=== PATIENT | male | born 1945 | race Caucasian/White ===

== ENCOUNTER 2016-12-02 12:30 | Inpatient (IN) | payer MEDICARE ==
[2016-12-03 12:54] VITALS: BMI 33.2
[2016-12-09] MEDS ORDERED: Tranexamic Acid 1,000 MG/100 ML BAG ONE (07:47)
[2016-12-09] MEDS ORDERED: Fentanyl 100 MCG/2 ML VIAL ONE ×4 (07:53→13:19)
[2016-12-09] MEDS ORDERED: Midazolam HCl 2 mg/2 ml Vial ONE (07:53)
[2016-12-09] MEDS ORDERED: Bupivacaine HCl 0.5%/Epinephrine 1:200,000/PF 30 ml Vial ONE (08:03)
[2016-12-09] MEDS ORDERED: Ondansetron HCl/PF 4 MG/2 ML Vial IVP PRN ×2 (08:58→12:28)
[2016-12-09] MEDS ORDERED: Zolpidem Tartrate 5 MG TAB PO PRN (08:58)
[2016-12-09] MEDS ORDERED: HYDROcodone/Acetaminophen 10/325 mg Tablet PO PRN (08:58)
[2016-12-09] MEDS ORDERED: Promethazine HCl 25 MG/ML VIAL IM PRN ×2 (08:58→12:28)
[2016-12-09] MEDS ORDERED: Ropivacaine HCl/PF 250 ML in Premix Bag 1 BAG NERVE BLCK SCH (08:58)
[2016-12-09] MEDS ORDERED: traMADol HCl 50 MG TAB PO PRN ×2 (08:58)
[2016-12-09] MEDS ORDERED: Levofloxacin 500 mg/D5W 100 ml Premix Bag ONE (09:50)
[2016-12-09] MEDS ORDERED: Clindamycin/D5W 900 mg/50 ml Premix Bag ONE (09:50)
[2016-12-09] MEDS ORDERED: PHENYLEPHRINE-NS 100 MCG/ML 10 ML SYRINGE ONE (10:08)
[2016-12-09] MEDS ORDERED: Propofol 200 MG/20 ML VIAL ONE (10:08)
[2016-12-09] MEDS ORDERED: Ketorolac Tromethamine 30 MG/ML VIAL ONE (10:08)
[2016-12-09] MEDS ORDERED: Dexamethasone 20 MG/5 ML VIAL ONE (10:08)
[2016-12-09] MEDS ORDERED: Ondansetron HCl/PF 4 MG/2 ML Vial ONE (10:08)
[2016-12-09] MEDS ORDERED: Lidocaine 2% PF 10 ML AMP (For Epidural Use) ONE (10:08)
[2016-12-09] MEDS ORDERED: Tranexamic Acid 1,000 MG in Sodium Chloride 0.9% 100 ML IVPB SCH (12:15)
[2016-12-09] MEDS ORDERED: Sodium Chloride 0.9% 100 ML ONE (12:16)
[2016-12-09] MEDS ORDERED: Promethazine HCl 25 MG/ML VIAL SLOW IVP PRN (12:28)
[2016-12-09] MEDS ORDERED: HYDROmorphone 2 MG/ML VIAL SLOW IVP PRN (12:28)
--- NOTE | 2016-12-09 14:21 | RAD ---
RIGHT KNEE TWO VIEWS: History: 71-year-old male with post op total knee arthroplasty. FINDINGS: Recent total knee arthroplasty changes are noted. No evidence of dislocation or periprosthetic fract ure or other unexpected finding. IMPRESSION: Unremarkable recent post total knee arthroplasty. POS: LIZETH
--- NOTE | 2016-12-09 14:36 | OP ---
DATE OF PROCEDURE: 12/09/2016 PREOPERATIVE DIAGNOSIS: Right knee osteoarthritis. POSTOPERATIVE DIAGNOSES: Right knee osteoarthritis. PROCEDURE PERFORMED: Right total knee arthroplasty. STAFF: Dario Stein M.D. SHIPPER AND RECEIVING: JONATHAN Killian ANESTHESIA: The patient received a general LMA intubation with abductor canal and a single shot to sciatic. ESTIMATED BLOOD LOSS: 100 mL. TOURNIQUET TIME: 98 minutes. ANTIBIOTICS: Clindamycin 900, Levaquin 500, TXA 1 gram. IMPLANTS: The patient received Nate Triathlon CR femur. Femur size 5, tibia size 4, 9 mm polyp, CR femur poly, and A29 patella. COMPLICATIONS: None. HISTORY OF PRESENT ILLNESS: Mr. Muniz is a 71-year-old male with years of right knee pain. The patient had previous left total knee arthroplasty. The patient had a history of chronic pain. The patient had no previous injury to his right knee. I discussed with patient the risks and benefits of right total knee arthroplasty to include pain, scar, bleeding, infection, damage to vital structures, decreased range of motion or strength, failure of procedure, continued pain despite surgical intervention. The patient understood the risks and benefits of procedure and elected to proceed. PROCEDURE IN DETAIL: Timeout was performed designating the patient's right lower extremity as the operative site based on sight, consents, markings. After timeout, the patient's right lower extremity was prepped and draped in sterile fashion. The right lower extremity was prepped and draped in sterile fashion. Tourniquet was brought up and left up for a total of 98 minutes. Anterior midline approach was medial patellar arthrotomy. We did our fat pad excision. We released soft tissue medially, exposed the femur, mapped the femur out, cut 7 and 10 degrees varus valgus and 4 degrees anterior slope. We then matched external rotation guide on our femur, pinned it into position. We cut the femur at 3 degrees of external rotation at a size 5. We moved our anterior, posterior chamfer cuts. We then moved the tibia, exposed the tibia and cut 1 and 6 switching to 3 and 8, 0 degrees varus valgus, 4 degrees of posterior slope. We had to go back and smooth the posterior slope as he had osteophytes posteriorly. With this, we placed our lamina electrolysis operator, removed osteophytes, removed our meniscus medially and laterally, pinned our tray, slightly remant posterior bone and slope which we smoothed down, we then finalized and pinned our tray into position size 4, a 9 poly. He had good flexion and extension, good overall rotation, was good alignment and good full extension and flexion. The patient then had the patella, cut. It was cut to an A29, leaving about 14 mm of bone down from 25. We then placed it into position. I liked the overall alignment. I tracked and I washed, closed the medial patellar arthrotomy with # 2. We closed with a 2-0 and glue. The patient will be weightbearing as tolerated. The patient will follow up in the hospital, will need acute pain control. LUIS ANGEL
[2016-12-09] MEDS ORDERED: PROVENTIL INHALER 6.7 G (200 INHALATIONS) INH PRN (14:46)
[2016-12-09] MEDS ORDERED: diphenhydrAMINE HCl 25 MG CAP PO PRN (15:00)
[2016-12-09] MEDS ORDERED: Fentanyl 100 MCG/2 ML VIAL SLOW IVP PRN (15:00)
[2016-12-09] MEDS ORDERED: Acetaminophen 325 MG TAB PO PRN (15:00)
[2016-12-09] MEDS: Gabapentin 300 MG CAP PO SCH ×2 (15:30→20:36)
[2016-12-09] MEDS: Methocarbamol 500 MG TAB PO SCH ×2 (15:30→20:35)
[2016-12-09] MEDS: Clindamycin/D5W 900 MG in Premix Bag 1 BAG IVPB SCH ×2 (15:30→21:49)
[2016-12-09] MEDS: Fentanyl 100 MCG/2 ML VIAL SLOW IVP PRN (15:34)
[2016-12-09] MEDS: Dextrose 5 %-0.45 % NaCl 1,000 ML IV SCH (16:17)
--- NOTE | 2016-12-09 19:47 | HP ---
PREOPERATIVE DIAGNOSIS: Right knee osteoarthritis. HISTORY OF PRESENT ILLNESS: Mr. Muniz is a 71-year-old male with right knee pain, severe with activity, and having difficulty walking, has a history of left total knee arthroplasty. The patient had no previous surgeries or injuries to his right knee, numbness or tingling. Previous injection gave him minimal relief. Pain was 4-10 at times. The pain increases. The patient has no significa nt history of cardiac or pulmonary condition. This patient does have a history of chronic pain kajal gejace by chronic pain specialist in [place]. PAST MEDICAL HISTORY: Includes hypertension, asthma, COPD and chronic pain. PAST SURGICAL HISTORY: Multiple low back surgeries, cervical spine surgery, left total shoulder art hroplasty, right total shoulder arthroplasty performed here by me, left total knee arthroplasty and previous foot procedure. MEDICATIONS: Include albuterol, bupropion, cholecalciferol, clonazepam, vitamin B12, diphenhydramin e, Cymbalta, finasteride, gabapentin, hydrocodone, ibuprofen, Robaxin, omega 3, pantoprazole, tamsul osin and trazodone. ALLERGIES: PENICILLIN and LATEX. SOCIAL HISTORY: Currently nonsmoker. Currently nondrinker. The patient is retired. PHYSICAL EXAMINATION: GENERAL: Alert and oriented male in no acute distress, resting in bed. EXTREMITIES: Right knee, the patient has moderate effusion, ecchymosis is prominent at tibial tuber nina. Medial joint line and lateral joint line pain on palpation, no surgical wounds, 500-degree arc of motion. Ligaments; ACL, PCL, MCL and LCL appear stable. Calf, neurovascularly intact. 2+ puls es. Able to do straight leg raise. Previous x-rays showed tricompartmental osteoarthritis, no acut e fracture, loose bodies noted near patellar tendon insertion. IMPRESSION AND PLAN: Right knee osteoarthritis. Treatment: I discussed performing a right total k nee arthroplasty for long-term relief. The patient would like to proceed surgically with right knee arthroplasty. He understands that this pain may be managed with a pain specialist. The patient wi ll follow [facility] postop protocol and remain in the hospital postop. He understands the risks an d benefits of surgery, pain, scar, bleeding, infection, damage to vital structures, decreased range of motion or strength, failure of procedure, continued pain, loss of life or limb. The patient unde rstood these risks and benefits and elects to proceed.
[2016-12-09] MEDS: Tamsulosin HCl 0.4 MG CAP PO SCH (20:35)
[2016-12-09] MEDS: clonazePAM 0.5 MG TAB PO SCH (20:35)
[2016-12-09] MEDS: Ferrous Gluconate 324 MG TAB PO SCH (20:35)
[2016-12-09] MEDS: traZODone HCl 50 MG TAB PO SCH (20:36)
[2016-12-09] MEDS: diphenhydrAMINE HCl 25 MG CAP PO SCH (20:36)
[2016-12-09] MEDS: Senokot S 8.6-50 MG TAB PO SCH ×2 (20:37)
[2016-12-09] MEDS: Ketorolac Tromethamine 30 MG/ML VIAL IVP SCH (21:47)
--- NOTE | 2016-12-10 02:16 | CON-2 ---
DATE OF CONSULTATION: 12/09/2016 CODE STATUS: FULL. PRIMARY CARE PHYSICIAN: Dr. Regina Rucker. ATTENDING PHYSICIAN: Dr. Gabrielle Harrison. RESIDENT: Dr. Rayna Gutierrez. CHIEF COMPLAINT: Consult for medical management. HISTORY OF PRESENT ILLNESS: This is a 71-year-old patient with a past medical history of osteoarthritis of the right knee, COPD, PTSD. He is here for a right knee replacement, which he received earlier today. He is doing well at this time. Pain is well controlled. He is starting on food and tolerating it okay. No other complaints were offered during the interview. The patient does not have his medication list at this time, but states that the nurse had the updated list and it is in the computer. The patient sees a final touch up painter for chronic pain. PAST MEDICAL HISTORY: COPD, PTSD, possible hyperlipidemia, and osteoarthritis. PAST SURGICAL HISTORY: The patient reports the back surgery, neck surgery, bilateral shoulder replacements, bilateral knee replacements and foot surgery. ALLERGIES: PENICILLIN. MEDICATIONS: 1. Albuterol 2 puffs inhaled q.6 hours p.r.n. 2. Vitamin D3 of 1000 units p.o. daily. 3. Senna 1 tab p.o. at bedtime. 4. Wellbutrin 100 mg p.o. daily. 5. Fish oil 1000 mg capsules p.o. t.i.d. 6. Diphenhydramine 3 tabs p.o. at bedtime. 7. Vitamin B12 of 1000 mcg p.o. daily. 8. Flunisolide 2 sprays each naris daily. 9. Gabapentin 300 mg p.o. t.i.d. 10. Ibuprofen 800 mg p.o. b.i.d. p.r.n. 11. Protonix 40 mg p.o. daily. 12. Trazodone 100 mg p.o. at bedtime. 13. Klonopin 0.5 mg tab p.o. b.i.d. 14. Cymbalta 60 mg p.o. at bedtime. 15. Tamsulosin 0.4 mg p.o. at bedtime. 16. Methocarbamol or Robaxin 1 tab p.o. t.i.d. 17. Hydrocodone 10/325 two tabs p.o. q.4 hours p.r.n. pain. FAMILY HISTORY: Unknown, patient is adopted. SOCIAL HISTORY: Patient is a former smoker; however, quit several years ago. He is a social alcohol drinker and does not do drugs. REVIEW OF SYSTEMS: General: Patient denied fever, chills, weight change or appetite change. Eyes: Denies vision changes or eye pain. ENT: Denies nasal congestion, rhinorrhea, or sore throat. Respiratory: No cough, congestion or shortness of breath. Cardiovascular: No chest pain, palpitations, edema. Gastrointestinal: No nausea, vomiting, diarrhea, constipation, abdominal pain. Genitourinary: Denies dysuria, polyuria. Skin: Denies rashes or lesions. Musculoskeletal: Denies pain, tenderness or arthritis per patient. Neurologic : No weakness, numbness or syncope. Psychiatry: Positive for PTSD. PHYSICAL EXAMINATION: VITAL SIGNS: Patient's blood pressure is 143/85, pulse is 87, temperature is 97.7, respirations 20, pulse ox is 93% on room air. Current weight is 96 kilograms. GENERAL: The patient is alert and oriented x3, in no acute distress. Well- developed and well-nourished. EYES: PERRLA, EOMI. ENT: Oropharynx within normal limits with Mallampati 3. NECK: Supple, without lymphadenopathy or thyromegaly. CARDIOVASCULAR: Regular rate and rhythm without any murmurs noted. Posterior tibial pulses are 2+. RESPIRATORY: Normal effort without retractions and clear to auscultation bilaterally. SKIN: Warm and dry without cyanosis or lesions. ABDOMEN: Soft, nontender to palpation and bowel sounds are present. EXTREMITIES: No clubbing, cyanosis or edema. MUSCULOSKELETAL: Structure is within normal limits. Tone within normal limits. Muscle strength 5/5 and has full range of motion. There is a bandage to his right knee. NEUROLOGIC: No focal deficits. Sensation is within normal limits. Cranial nerves II through XII appeared to be intact. LABORATORY DATA: Patient's only lab done during this hospitalization is a PT of 13 and INR of 1. ASSESSMENT AND PLAN: This is a 71-year-old patient who is status post right knee replacement. 1. Right knee arthritis, status post arthroplasty. This management will be per Ortho, however, noted to have weightbearing as tolerated status. He has p.r.n. pain medications on which were also being managed by Anesthesia. PT is consulted. 2. Chronic obstructive pulmonary disease. The patient has p.r.n. albuterol. 3. Posttraumatic stress disorder, we will continue his current home medications Wellbutrin and Cymbalta. 4. May consider deep vein thrombosis prophylaxis per Ortho recommendations. 5. Pain management per Anesthesia at this time. Also, patient will be doing physical therapy as tolerated. 6. We will continue to monitor the patient's vital signs and give symptomatic medications as needed. Thank you for the consultation. LUIS ANGEL
[2016-12-10] MEDS: Dextrose 5 %-0.45 % NaCl 1,000 ML IV SCH ×3 (02:29→20:26)
[2016-12-10] MEDS: HYDROcodone/Acetaminophen 10/325 mg Tablet PO PRN ×3 (04:03→12:37)
[2016-12-10] MEDS: Ketorolac Tromethamine 30 MG/ML VIAL IVP SCH ×3 (05:33→22:32)
[2016-12-10 06:22] LABS: Hematocrit 40.7 % (42.0-52.0); Mean Platelet Volume 8.3 fL (7.4-10.4); Red Blood Cell (RBC) Count 4.03 mill/uL (4.70-6.10); White Blood Cell (WBC) Count 19.3 thou/uL (4.8-10.8)
[2016-12-10] MEDS: buPROPion HCl 100 MG TAB PO SCH (08:38)
[2016-12-10] MEDS: Gabapentin 300 MG CAP PO SCH ×3 (08:38→20:25)
[2016-12-10] MEDS: Senokot S 8.6-50 MG TAB PO SCH ×3 (08:38→20:24)
[2016-12-10] MEDS: Methocarbamol 500 MG TAB PO SCH ×3 (08:39→20:25)
[2016-12-10] MEDS: FlunisoLIDE 0.025% Nasal Spray 25 ml Bottle EA NARE SCH (08:39)
[2016-12-10] MEDS: clonazePAM 0.5 MG TAB PO SCH (08:39)
[2016-12-10] MEDS: Ferrous Gluconate 324 MG TAB PO SCH ×2 (08:39→20:25)
[2016-12-10] MEDS: Aspirin 325 MG TAB PO SCH (08:39)
[2016-12-10] MEDS: Multivitamin W/ Minerals 1 TAB PO SCH (08:39)
--- NOTE | 2016-12-10 09:15 | PDOC.FM ---
- Subjective Subjective: Pain well controlled. Nerve block in place to RLE. Tolerating foods well. No complaints this AM. - Objective Vital Signs & Weight: Vital Signs (12 hours) Temp Pulse Resp BP BP Pulse Ox 12/10/16 07:19 97.9 F 71 16 119/72 95 12/10/16 04:00 98.7 F 78 14 127/77 97 12/10/16 00:00 98.4 F 69 16 110/69 92 L Weight Weight 96.162 kg I&O: 12/09/16 12/10/16 12/11/16 06:59 06:59 06:59 Intake Total 300 Output Total 1200 Balance -900 Result Diagrams: 12/10/16 05:25 <Rayna Gutierrez - Last Filed: 12/10/16 10:34> - Objective Vital Signs & Weight: Vital Signs (12 hours) Temp Pulse Resp BP BP Pulse Ox 12/10/16 08:00 97.9 F 71 16 95 12/10/16 07:19 97.9 F 71 16 119/72 95 12/10/16 04:00 98.7 F 78 14 127/77 97 12/10/16 00:00 98.4 F 69 16 110/69 92 L Weight Weight 96.162 kg I&O: 12/09/16 12/10/16 12/11/16 06:59 06:59 06:59 Intake Total 300 Output Total 1200 Balance -900 Result Diagrams: 12/10/16 05:25 <Regina Rucker - Last Filed: 12/10/16 10:45> Phys Exam - Physical Examination Constitutional: NAD HEENT: PERRLA Respiratory: no wheezing, no rales, no rhonchi, clear to auscultation bilateral Cardiovascular: RRR, no significant murmur 2+ post tibial pulse B Gastrointestinal: soft, non-tender Musculoskeletal: no edema RLE numb 2/2 nerve block Psychiatric: normal affect, A&O x 3 <Rayna Gutierrez - Last Filed: 12/10/16 10:34> Dx/Plan (1) Status post total knee replacement, right Code(s): Z96.651 - PRESENCE OF RIGHT ARTIFICIAL KNEE JOINT Status: Acute Plan: Pain controlled. decrease pain meds per anesthesia. Initiate PT Monitor for BM although patient has bowel regimen in place. high dose ASA DVT ppx (2) PTSD (post-traumatic stress disorder) Code(s): F43.10 - POST-TRAUMATIC STRESS DISORDER, UNSPECIFIED Status: Acute Plan: cont current home meds. (3) COPD (chronic obstructive pulmonary disease) Status: Chronic Plan: prn albuterol available. stable <Rayna Gutierrez - Last Filed: 12/10/16 10:34> Attending Addendum - Attending Addendum I personally evaluated the patient and discussed the management with Dr. Gutierrez. I agree with the History, Examination, Assessment and Plan documented above with any addition or exceptions noted below. The patient was sitting up in a chair and states pain is controlled with nerve block. He is working with PT. He has no other complaints at this time. <Regina Rucker - Last Filed: 12/10/16 10:45>
[2016-12-10] MEDS: Fentanyl 100 MCG/2 ML VIAL SLOW IVP PRN ×3 (10:35→15:52)
[2016-12-10] MEDS ORDERED: Naloxone HCl 0.4 mg/ml Vial IV PRN (16:43)
[2016-12-10] MEDS ORDERED: Promethazine HCl 25 MG/ML VIAL IM PRN (16:43)
[2016-12-10] MEDS ORDERED: diphenhydrAMINE HCl 25 MG CAP PO PRN (16:43)
[2016-12-10] MEDS ORDERED: diphenhydrAMINE HCl 50 MG/ML 1 ML VIAL IM/IV PRN (16:43)
[2016-12-10] MEDS ORDERED: Ondansetron HCl/PF 4 MG/2 ML Vial IVP PRN (16:43)
[2016-12-10] MEDS ORDERED: Zolpidem Tartrate 5 MG TAB PO PRN (16:43)
[2016-12-10] MEDS ORDERED: Fentanyl 5000 MCG/250 ML CADD IV PRN (16:43)
[2016-12-10] MEDS: traZODone HCl 50 MG TAB PO SCH (20:24)
[2016-12-10] MEDS: diphenhydrAMINE HCl 25 MG CAP PO SCH (20:25)
[2016-12-10] MEDS: Tamsulosin HCl 0.4 MG CAP PO SCH (20:25)
[2016-12-11 06:05] LABS: Mean Platelet Volume 8.2 fL (7.4-10.4); Red Blood Cell (RBC) Count 3.93 mill/uL (4.70-6.10); White Blood Cell (WBC) Count 12.5 thou/uL (4.8-10.8)
--- NOTE | 2016-12-11 09:28 | PDOC.FM ---
- Subjective Subjective: Patient in significant pain this morning. He is using the TECHNOLOGY SUPPORT ANALYST a lot per patient. Nerve block wore off. Pain is outlined along anterior aspect of lower thigh and over knee. Does not report pain in post leg. Pain is constant and strong. - Objective Vital Signs & Weight: Vital Signs (12 hours) Temp Pulse Resp BP BP Pulse Ox 12/11/16 08:05 98.4 F 94 16 138/82 92 L 12/11/16 04:51 98.4 F 99 19 119/68 92 L 12/11/16 00:00 98.0 F 84 19 104/64 90 L Weight Admit Weight 96.162 kg Weight 96.162 kg I&O: 12/10/16 12/11/16 12/12/16 06:59 06:59 06:59 Intake Total 300 Output Total 1200 Balance -900 Result Diagrams: 12/11/16 05:33 <Rayna Gutierrez - Last Filed: 12/11/16 10:44> - Objective Vital Signs & Weight: Vital Signs (12 hours) Temp Pulse Resp BP Pulse Ox 12/12/16 04:00 97.8 F 90 18 113/72 93 L 12/11/16 23:56 98.5 F 84 19 117/72 93 L Weight Admit Weight 96.162 kg Weight 96.162 kg I&O: 12/11/16 12/12/16 12/13/16 06:59 06:59 06:59 Intake Total 500 Output Total 1000 Balance -500 Result Diagrams: 12/12/16 06:03 <Regina Rucker - Last Filed: 12/12/16 10:47> Phys Exam - Physical Examination complaining of pain non labored breathing Gastrointestinal: soft Musculoskeletal: no edema rt leg slightly increased in size compared to left, no sig warmth rt leg neg homans size, non tender to calf squeeze, mild erythema rt leg <Rayna Gutierrez - Last Filed: 12/11/16 10:44> Dx/Plan (1) Status post total knee replacement, right Code(s): Z96.651 - PRESENCE OF RIGHT ARTIFICIAL KNEE JOINT Status: Acute Plan: Discussed changing pain regimen with anesthesia as patient does not do well with fentanyl. Initiate PT Monitor for BM although patient has bowel regimen in place. high dose ASA DVT ppx (2) PTSD (post-traumatic stress disorder) Code(s): F43.10 - POST-TRAUMATIC STRESS DISORDER, UNSPECIFIED Status: Acute Plan: cont current home meds. (3) COPD (chronic obstructive pulmonary disease) Status: Chronic Plan: prn albuterol available. stable <Rayna Gutierrez - Last Filed: 12/11/16 10:44> Attending Addendum - Attending Addendum I personally evaluated the patient and discussed the management with Dr. Gutierrez on 12/11/16 I agree with the History, Examination, Assessment and Plan documented above with any addition or exceptions noted below. The patient is confused this morning due to increased pain and the fentanyl small business representative. He has not done well with fentanyl during a previous hospitalization for shoulder surgery. Discussed changing meds with anesthesia who will come re- evaluate. <Regina Rucker - Last Filed: 12/12/16 10:47>
[2016-12-11] MEDS: Aspirin 325 MG TAB PO SCH (09:56)
[2016-12-11] MEDS: buPROPion HCl 100 MG TAB PO SCH (09:57)
[2016-12-11] MEDS: Senokot S 8.6-50 MG TAB PO SCH ×3 (09:57→20:54)
[2016-12-11] MEDS: Gabapentin 300 MG CAP PO SCH ×3 (09:57→20:48)
[2016-12-11] MEDS: Multivitamin W/ Minerals 1 TAB PO SCH (09:57)
[2016-12-11] MEDS: Ferrous Gluconate 324 MG TAB PO SCH ×2 (09:58→20:48)
[2016-12-11] MEDS: Dextrose 5 %-0.45 % NaCl 1,000 ML IV SCH ×2 (10:05→16:32)
[2016-12-11] MEDS: FlunisoLIDE 0.025% Nasal Spray 25 ml Bottle EA NARE SCH (10:06)
[2016-12-11] MEDS: Ketorolac Tromethamine 30 MG/ML VIAL IVP SCH ×3 (10:23→21:56)
[2016-12-11] MEDS: Methocarbamol 500 MG TAB PO SCH ×3 (10:24→20:48)
[2016-12-11] MEDS ORDERED: oxyCODONE/Acetaminophen 5 mg/325 mg Tablet PO PRN ×4 (11:55→18:00)
[2016-12-11] MEDS ORDERED: HYDROmorphone 10 mg/100 ml CADD IV PRN (11:56)
[2016-12-11] MEDS ORDERED: Morphine Sulfate 2 MG/ML SYRINGE SLOW IVP PRN (13:11)
[2016-12-11] MEDS: oxyCODONE/Acetaminophen 5 mg/325 mg Tablet PO PRN (19:46)
[2016-12-11] MEDS: diphenhydrAMINE HCl 25 MG CAP PO SCH (20:47)
[2016-12-11] MEDS: traZODone HCl 50 MG TAB PO SCH (20:49)
[2016-12-11] MEDS: Tamsulosin HCl 0.4 MG CAP PO SCH (20:49)
[2016-12-12] MEDS: oxyCODONE/Acetaminophen 5 mg/325 mg Tablet PO PRN ×2 (01:47→08:13)
[2016-12-12 06:32] LABS: Hematocrit 36.6 % (42.0-52.0); Mean Platelet Volume 8.1 fL (7.4-10.4); Red Blood Cell (RBC) Count 3.61 mill/uL (4.70-6.10); White Blood Cell (WBC) Count 9.8 thou/uL (4.8-10.8)
[2016-12-12] MEDS: Aspirin 325 MG TAB PO SCH (08:13)
[2016-12-12] MEDS: Gabapentin 300 MG CAP PO SCH (08:14)
[2016-12-12] MEDS: Ferrous Gluconate 324 MG TAB PO SCH (08:14)
[2016-12-12] MEDS: buPROPion HCl 100 MG TAB PO SCH (08:15)
[2016-12-12] MEDS: Senokot S 8.6-50 MG TAB PO SCH (08:15)
[2016-12-12] MEDS: Methocarbamol 500 MG TAB PO SCH (08:25)
[2016-12-12] MEDS: FlunisoLIDE 0.025% Nasal Spray 25 ml Bottle EA NARE SCH (08:26)
--- NOTE | 2016-12-12 09:07 | PDOC.FM ---
- Subjective Subjective: Patient states he is still in pain this morning but it is tolerable. Oral pain meds are helping. Pans for outpt PT on Thursday and has small exercises to do over the weekend. - Objective MAR Reviewed: Yes Vital Signs & Weight: Vital Signs (12 hours) Temp Pulse Resp BP Pulse Ox 12/12/16 04:00 97.8 F 90 18 113/72 93 L 12/11/16 23:56 98.5 F 84 19 117/72 93 L Weight Admit Weight 96.162 kg Weight 96.162 kg I&O: 12/11/16 12/12/16 12/13/16 06:59 06:59 06:59 Intake Total 500 Output Total 1000 Balance -500 Result Diagrams: 12/12/16 06:03 <Rayna Gutierrez - Last Filed: 12/12/16 09:05> - Objective Vital Signs & Weight: Vital Signs (12 hours) Temp Pulse Resp BP Pulse Ox 12/12/16 04:00 97.8 F 90 18 113/72 93 L 12/11/16 23:56 98.5 F 84 19 117/72 93 L Weight Admit Weight 96.162 kg Weight 96.162 kg I&O: 12/11/16 12/12/16 12/13/16 06:59 06:59 06:59 Intake Total 500 Output Total 1000 Balance -500 Result Diagrams: 12/12/16 06:03 <Regina Rucker - Last Filed: 12/12/16 10:50> Phys Exam - Physical Examination Constitutional: NAD HEENT: PERRLA Respiratory: no wheezing, no rales, no rhonchi, clear to auscultation bilateral Cardiovascular: RRR, no significant murmur Gastrointestinal: soft, non-tender Musculoskeletal: pulses present (bilaterally post tibial 2+) minimal post op swelling to RLE, minimal erythema. No calf tenderness. Neurological: non-focal Psychiatric: A&O x 3 <Rayna Gutierrez - Last Filed: 12/12/16 09:05> Dx/Plan (1) Status post total knee replacement, right Code(s): Z96.651 - PRESENCE OF RIGHT ARTIFICIAL KNEE JOINT Status: Acute (2) PTSD (post-traumatic stress disorder) Code(s): F43.10 - POST-TRAUMATIC STRESS DISORDER, UNSPECIFIED Status: Acute Plan: cont current home meds. (3) COPD (chronic obstructive pulmonary disease) Status: Chronic Plan: prn albuterol available. stable - Plan Plan: Pain control with oral meds. Home later today per ortho. +ASA Encouraged movement/PT exercises. Follow up as advised per ortho. <Rayna Gutierrez - Last Filed: 12/12/16 09:05> Attending Addendum - Attending Addendum I personally evaluated the patient and discussed the management with Dr. Gutierrez. I agree with the History, Examination, Assessment and Plan documented above with any addition or exceptions noted below. Patient is resting comfortably today. He will be discharged later today and will continue oral pain meds per regimen from pain management physician. <Regina Rucker - Last Filed: 12/12/16 10:50>
[2016-12-12] MEDS: Multivitamin W/ Minerals 1 TAB PO SCH (10:45)
[2016-12-12 12:32] VITALS: BP 124/73; TEMP 98.2
--- NOTE | 2016-12-15 12:32 | DIS ---
DATE OF ADMISSION: 12/09/2016 DATE OF DISCHARGE: 12/12/2016 ADMITTING DIAGNOSIS: Right total knee arthroplasty. HISTORY OF PRESENT ILLNESS: Mr. Muniz is a 71-year-old male with right knee pain, previous lef t total knee arthroplasty, underwent an uneventful right total knee arthroplasty. The patient was a dmitted postoperatively. In the hospital, he was followed by Anesthesia. He had pain control issue s. He has a history of chronic pain. Once his pain medications were adjusted back to his home leve l of OxyContin, the patient was discharged home. His medications will be provided by his pain spec ialist. He was discharged on daily aspirin for DVT prophylaxis. The patient is to follow up in 3 w [facility] therapy setup. The patient was discharged to home.
--- NOTE | 2016-12-30 14:29 | DIS ---
DATE OF ADMISSION: 12/09/2016 DATE OF DISCHARGE: 12/12/2016 PREOPERATIVE DIAGNOSIS: Right knee osteoarthritis. DISCHARGE DIAGNOSIS: Right knee osteoarthritis. PROCEDURE: The patient underwent a right total knee arthroplasty. HOSPITAL COURSE: Hospital stay was unremarkable. The patient was admitted to [address] where he worked with staff, physical therapy, occupational therapy, and did quite well. By post op day 3 he was ready to discharge home. DISCHARGE CONDITION: Good/stable. DISPOSITION: Home with family. FOLLOWUP: Follow up would be in 2-4 weeks, sooner if there are problems or concerns. DISCHARGE MEDICATIONS: Given with usage instructions.
== END 2016-12-12 12:17 | disposition home or self-care (01) | DRG 470 ==
LOC: SJJU 12-09 07:06 → SURG A 12-09 13:58
PROVIDERS: ADMIT Orthopaedic Surgery; ATTEND Orthopaedic Surgery
PROC: 0SRC0JA Replacement of Right Knee Joint with Synthetic Substitute, Uncemented, Open Approach (ICD-10-PCS; principal; 2016-12-09)
PROC: 3E0T3CZ (ICD-10-PCS; 2016-12-09)
DX: M17.11 Unilateral primary osteoarthritis, right knee (principal); J44.9 Chronic obstructive pulmonary disease, unspecified; I10 Essential (primary) hypertension; F43.10 Post-traumatic stress disorder, unspecified; Z88.0 Allergy status to penicillin; Z91.040 Latex allergy status; Z96.652 Presence of left artificial knee joint; Z87.891 Personal history of nicotine dependence
CPT/HCPCS: 36415; 85027; 85610; A4216; C1713; C1776; G8978-GP-CL; G8979-GP-CJ; J0670; J1100; J1170; J1885; J1956; J2001; J2250; J2270; J2405; J2704; J2795; J3010; J3490; J7050

== ENCOUNTER 2017-03-27 14:41 | Inpatient (IN) | payer MEDICARE ==
[2017-03-27] MEDS ORDERED: Methocarbamol 500 MG TAB PO PRN (16:04)
[2017-03-27] MEDS ORDERED: Ibuprofen 800 MG TAB PO PRN (16:04)
[2017-03-27] MEDS ORDERED: traZODone HCl 50 MG TAB PO PRN (16:04)
[2017-03-27] MEDS ORDERED: Senokot 8.6 MG TAB PO PRN (16:04)
[2017-03-27 16:41] LABS: Troponin I 0.093 ng/mL (< 0.028)
[2017-03-27] MEDS ORDERED: Albuterol Sulfate 2.5 mg/3 ml Neb NEB PRN (16:46)
[2017-03-27] MEDS ORDERED: Acetaminophen 325 MG TAB PO PRN (18:05)
[2017-03-27] MEDS ORDERED: Thiamine HCl 200 MG/2 ML VIAL IM SCH (18:30)
[2017-03-27] MEDS ORDERED: oxyCODONE/Acetaminophen 5 mg/325 mg Tablet PO SCH ×2 (18:30→22:00)
[2017-03-27 19:02] LABS: Troponin I 0.097 ng/mL (< 0.028)
[2017-03-27] MEDS ORDERED: Diazepam 5 MG TAB PO PRN (19:16)
[2017-03-27] MEDS: Ipratropium Bromide 2.5 ml Neb NEB SCH ×2 (19:19→23:58)
--- NOTE | 2017-03-27 19:26 | HP-2 ---
TIME AND DATE OF SERVICE: 03/27/2017 at 1550. CODE STATUS: FULL CODE. PRIMARY CARE PHYSICIAN: Dr. Rucker. ATTENDING: Gabrielle Harrison M.D. RESIDENT: Luis Barnard MD HISTORIAN: Patient. SPECIALIST: Dr. Patel, Pain Management. CHIEF COMPLAINT: Coughing, not feeling well. HISTORY OF PRESENT ILLNESS: Renard Muniz is a 71-year-old male with past medical history of hy perlipidemia, chronic pain managed by Dr. Patel in [place], and COPD, who presents with 4-day history of increased productive cough and dyspnea. He states that his has been sick and symptoms have pro gressively worsened to the point where yesterday he was having difficulty breathing. He was seen in Dr. Rucker's clinic by JONATHAN this morning and was sent to [facility]. There he had a white count of 22 and an indeterminate troponin of 0.11. He was transferred to [facility] in [facility]. He also received IV Levaquin 125 mg, IV Solu-Medrol, aspirin and DuoNebs. The patient states he has a 67-danp-ddjx smoker, but he quit 10 years ago. He has also had associated body aches and feve r x1 day and states he had a fever in the clinic this morning. PAST MEDICAL HISTORY: 1. Hyperlipidemia. 2. Chronic obstructive pulmonary disease. 3. Gastroesophageal reflux disease. 4. Anxiety/PTSD. PAST SURGICAL HISTORY: He has had a left and right knee arthroscopy, and left and right knee replace ment. He has had right and left shoulder replacement. He has had back surgery. He has had a tonsil lectomy. ALLERGIES: PENICILLIN. MEDICATIONS: 1. Clonazepam 0.5 tabs p.o. b.i.d. 2. Duloxetine delayed release 60 mg p.o. at bedtime. 3. Tamsulosin 0.4 mg p.o. at bedtime. 4. Trazodone 100 mg p.o. at bedtime. 5. Methocarbamol 500 mg t.i.d. 6. Gabapentin 300 mg p.o. t.i.d. 7. Pantoprazole delayed release 40 mg p.o. daily. 8. Oxycodone/acetaminophen 10/325 one tab p.o. q.4-6 hours. 9. Senna 1 tab oral in the morning. 10. Ibuprofen 800 mg t.i.d. 11. Vitamin B12 100 mg p.o. daily. 12. Zyrtec 10 mg b.i.d. 13. [place]-3 500 mg p.o. q.a.m. 14. Spiriva Respimat 2 puff inhaler. 15. Symbicort HFA 160 mcg/4.5 mcg 2 puffs INH b.i.d. 16. Flunisolide aerosol spray 1 spray intranasal once a day. 17. Albuterol 90 mcg INH. FAMILY HISTORY: Noncontributory. SOCIAL HISTORY: The patient endorses [id number] smoking history, but quit 10 years ago. Also, end orses drinking 2-3 beers per day. Denies any drug use. REVIEW OF SYSTEMS: Twelve point review of systems including general, eyes, ENT, respiratory, CV, GI, , skin, musculoskeletal, neuro, and psych all were reviewed and were unremarkable unless otherwise stated in the HPI with the exception of endorsing anxiety and depression, and chronic pain in his ba ck, shoulders, and knees. PHYSICAL EXAMINATION: VITAL SIGNS: Blood pressure 130/67, pulse 92, respiratory rate 20, T-max 98.5, pulse ox 94% on room air, current weight 98.88 kilograms. GENERAL: The patient is alert and oriented x3, no acute distress, well developed, well nourished, ob justin, appropriately interactive. HEENT: Pupils equal, round, reactive to light and accommodation. Extraocular muscles are intact. C onjunctivae within normal limits. ENT: Tympanic membranes pearly fontana without bulging or erythema. Nasal mucosa and oropharynx within normal limits. NECK: Supple without lymphadenopathy or thyromegaly. CARDIOVASCULAR: Regular rate and rhythm. No murmurs or gallops. RESPIRATORY: Normal effort, no retractions. LUNGS: Decreased breath sounds over right upper lobe. Slight egophony on the right and bibasilar cr ackles. SKIN: Warm and dry without cyanosis or lesions. ABDOMEN: Soft, nontender, bowel sounds x4. EXTREMITIES: No clubbing, cyanosis, or pitting edema. MUSCULOSKELETAL: Structure and tone within normal limits. Full range of motion. NEUROLOGIC: No focal deficits. Sensation within normal limits. PSYCHIATRIC: Appropriate. LABORATORY DATA: White blood cell count 22.4 with 74% neutrophils, hemoglobin 14.4, hematocrit 42.79 , MCV of 94.4, platelets 142. Sodium 140, potassium 3.8, chloride 104, carbon dioxide 27, BUN 18, cr eatinine 0.90, glucose of 126, lactic acid of 0.9, calcium of 9.2. CK-MB of 4.7, troponin I 0.116, B IT RISK ADVISOR 67.1. Influenza A and B negative. EKG showed normal sinus rhythm. Chest x-ray was read as no ac [place] cardiopulmonary process. ASSESSMENT AND PLAN: A 71-year-old male with past medical history of chronic obstructive pulmonary e xacerbation, who with 4-day history of increased shortness of breath, productive cough, and chills. 1. Mild chronic obstructive pulmonary exacerbation versus community-acquired pneumonia. Placed on t elemetry observation. This patient has improved with receiving IV Solu-Medrol, DuoNebs, and IV Levaq uin. We will continue Levaquin and start prednisone 40 mg p.o. x5 days and p.r.n. nebulizer. We diane l continue home chronic obstructive pulmonary exacerbation medications and monitor closely. 3. Indeterminate troponins. The patient does not complain of any chest pain. EKG showed normal sin us rhythm with no signs of ischemia. We will trend troponins. 4. Chronic pain. Continue home medications. 5. Alcohol abuse. Place the patient on ASE protocol and monitor symptoms. 6. Post-traumatic stress disorder. Continue home medications. 7. Hyperlipidemia. Continue home medications. 8. Deep venous thrombosis prophylaxis. Lovenox. 9. Diet: Heart healthy. 10. Activity: ad frandy. 11. Code status: FULL CODE. DISPOSITION AND POSSIBLE STAY: Two days. Symptomatic medication will be provided. History and physical exam as well as management discussed with Dr. Gabrielle Harrison.
[2017-03-27] MEDS ORDERED: Diazepam 5 MG TAB PO SCH (19:30)
[2017-03-27 19:47] LABS: Cardiac Risk 2.7 (Less than 4.5)
[2017-03-27] MEDS: Gabapentin 300 MG CAP PO SCH (20:46)
[2017-03-27] MEDS: clonazePAM 0.5 MG TAB PO SCH (20:46)
[2017-03-27] MEDS ORDERED: FlunisoLIDE 0.025% Nasal Spray 25 ml Bottle EA NARE SCH (21:00)
[2017-03-27] MEDS ORDERED: HYDROcodone/Acetaminophen 10/325 mg Tablet PO PRN (22:07)
[2017-03-27 22:12] LABS: Troponin I 0.062 ng/mL (< 0.028)
[2017-03-27 23:36] VITALS: BMI 35.5
--- NOTE | 2017-03-28 01:13 | HP ---
ATTENDING NOTE DATE OF SERVICE: 03/27/2017 CHIEF COMPLIANT: Coughing and malaise. HISTORY OF PRESENT ILLNESS: The patient is a 71-year-old patient of mine with the past medical history of chronic opioid use, hyperlipidemia, COPD, and GERD, who presented initially to the [facility] in [place], this morning. The patient's initial sats were in the 70s upon arrival to the clinic and he was coughing. The patient was sent to the ER in [place], where he was noted to be hypoxic and also to have some elevated troponins. The patient's O2 sats did improve after neb treatments, but he was transferred to [facility] for further workup. The patient in the ER has received IV Levaquin as well as Solu-Medrol, aspirin, and DuoNebs. He does have a 56-ipbb-[id number] smoking history, but he quit about 10 years ago. He also endorses body aches and fever. For the full past medical history, please see the resident's dictation. PHYSICAL EXAMINATION: Pertinent physical exam includes: LUNGS: Lung sounds with decreased breath sounds in the right upper lobe and bibasilar crackles. CARDIOVASCULAR: Regular rate and rhythm without murmurs, gallops, or rubs. EXTREMITIES: There is no clubbing, cyanosis, or edema. PSYCHIATRIC: The patient displays an appropriate mood and affect. LABORATORY DATA: 1. CBC: WBCs 22.4, hemoglobin 14.4, hematocrit 42.7, platelet count 142. 2. BMP: Sodium 140, potassium 3.8, chloride 104, bicarbonate 27, BUN 18, creatinine 0.9, glucose 126, calcium 9.2. 3. Lactic acid 0.9. 4. Troponin 0.116, 0.093, 0.097. IMAGING: Chest x-ray was read as no acute process. The patient does not have any infiltrates. ASSESSMENT AND PLAN: 1. Acute COPD exacerbation: No infiltrate was noted on chest x-ray. The patient will be treated with steroids and Levaquin. He will have neb treatments as needed, but he is no longer requiring oxygen. 2. Indeterminate troponins: We will continue to trend these. When the patient 's COPD exacerbation improves, he may need a stress test and further cardiac workup. 3. Chronic pain: We will continue his home pain medications as I do not want him to go through withdrawal while he is here. 4. Alcohol abuse: Patient will be placed on ASE protocol. 5. For the full history and physical, assessment and plan, please see the resident's dictation. I have discussed the case with Dr. Barnard, and agree with his documentation. LUIS ANGEL
[2017-03-28] MEDS ORDERED: Diazepam 5 MG TAB PO PRN (04:00)
[2017-03-28 05:55] LABS: #Lymphocytes 1.4 thou/uL (1.20-3.40); #Monocytes 0.4 thou/uL (0.11-0.59); #Neutrophils 17.1 thou/uL (1.40-6.50); %Eosinophils 0.1 % (0.0-10.0); %Lymphocytes 7.5 % (21.0-51.0); %Neutrophils 90.4 % (42.0-75.0); Hemoglobin 14.7 g/dL (14.0-18.0); Mean Corpuscular HGB CONC 32.9 g/dL (32.0-36.0); Mean Corpuscular Hemoglobin 33.3 pg (27.0-31.0); Platelet Count 169 thou/uL (130-400); Red Blood Cell (RBC) Count 4.41 mill/uL (4.70-6.10); White Blood Cell (WBC) Count 18.9 thou/uL (4.8-10.8)
[2017-03-28] MEDS ORDERED: oxyCODONE/Acetaminophen 5 mg/325 mg Tablet PO SCH (06:00)
[2017-03-28 06:12] LABS: Anion Gap 12 mmol/L (10-20); BUN (Urea Nitrogen) 21 mg/dL (8.4-25.7); Calc. Creatinine Clearance 115 mL/min (70-130); Calcium 9.7 mg/dL (7.8-10.44); Carbon Dioxide 25 mmol/L (23-31); Chloride 105 mmol/L (98-107); Estimated GFR-MDRD Greater than 90; Glucose 147 mg/dL (83-110); Potassium 4.8 mmol/L (3.5-5.1); Sodium 137 mmol/L (136-145)
--- NOTE | 2017-03-28 06:27 | PDOC.FM ---
- Subjective Subjective: Mr. Muniz states that he is wheezing more this morning. He just had a breathing treatment prior to me entering room and he states that his cough and wheezing are worse than when he was in the ER. He is otherwise feeling fine, no fever, chest pain, n/v/d, abd pain. - Objective MAR Reviewed: Yes Vital Signs & Weight: Vital Signs (12 hours) Temp Pulse Resp BP BP Pulse Ox 03/28/17 05:21 97.2 F L 88 16 129/81 93 L 03/28/17 03:56 97.2 F L 88 16 129/81 93 L 03/28/17 00:29 97.6 F 91 15 108/63 95 03/28/17 00:00 108/63 03/27/17 23:58 90 16 94 L 03/27/17 20:00 97.5 F L 89 20 93 L 03/27/17 19:58 116/84 03/27/17 19:19 86 16 98 Weight Weight 99.79 kg I&O: 03/26/17 03/27/17 03/28/17 06:59 06:59 06:59 Intake Total 940 Balance 940 Result Diagrams: 03/28/17 04:56 03/28/17 04:56 <Luis Barnard - Last Filed: 03/28/17 07:22> - Objective Vital Signs & Weight: Vital Signs (12 hours) Temp Pulse Pulse Pulse Resp BP BP 03/28/17 14:03 80 24 H 03/28/17 12:24 97.7 F 106 H 20 03/28/17 10:37 96 104 H 115/76 03/28/17 08:00 96.9 F L 89 20 135/80 03/28/17 06:40 03/28/17 06:36 87 20 03/28/17 05:21 97.2 F L 88 16 BP BP Pulse Ox Pulse Ox Pulse Ox 03/28/17 14:03 03/28/17 12:24 130/66 03/28/17 10:37 131/77 91 L 93 L 03/28/17 08:00 135/80 95 03/28/17 06:40 92 L 03/28/17 06:36 92 L 03/28/17 05:21 129/81 93 L Weight Weight 99.79 kg I&O: 03/27/17 03/28/17 03/29/17 06:59 06:59 06:59 Intake Total 940 Balance 940 Result Diagrams: 03/28/17 04:56 03/28/17 04:56 <Regina Rucker - Last Filed: 03/28/17 16:21> Phys Exam - Physical Examination Constitutional: NAD HEENT: moist MMs, sclera anicteric Neck: supple, full ROM Respiratory: wheezing present diffuse wheezes, more prominent on right Cardiovascular: RRR, no significant murmur Gastrointestinal: soft, non-tender, no distention Musculoskeletal: no edema Neurological: non-focal, normal sensation, moves all 4 limbs Psychiatric: normal affect, A&O x 3 <Luis Barnard - Last Filed: 03/28/17 07:22> Dx/Plan (1) COPD with exacerbation Code(s): J44.1 - CHRONIC OBSTRUCTIVE PULMONARY DISEASE W (ACUTE) EXACERBATION Status: Acute Plan: O2 sats in 70s at outside facility. Sats improved by the time pt reached [facility], after receiving IV solu-medrol, duonebs, IV levaquin Patient has been satting in the 90s on RA No consolidation on CXR Continue current treatment for COPD, patient stable. Likely ready for d/c with close OP f/u (2) Chronic pain Code(s): G89.29 - OTHER CHRONIC PAIN Status: Chronic Plan: Continue home meds, so as not to ellicit withdrawal (3) Alcohol abuse Code(s): F10.10 - ALCOHOL ABUSE, UNCOMPLICATED Status: Chronic Plan: ASE protocol, monitor symptoms (4) Hyperlipidemia Code(s): E78.5 - HYPERLIPIDEMIA, UNSPECIFIED Status: Chronic Plan: Continue home meds (5) PTSD (post-traumatic stress disorder) Code(s): F43.10 - POST-TRAUMATIC STRESS DISORDER, UNSPECIFIED Status: Chronic Plan: Cont home meds <Luis Barnard - Last Filed: 03/28/17 07:22> Attending Addendum - Attending Addendum I personally evaluated the patient and discussed the management with Dr. Barnard. I agree with the History, Examination, Assessment and Plan documented above with any addition or exceptions noted below. The patient is wheezing again during my visit. He is not ready for discharge. Patient will be given protonix for stomach burning. Due to elevated troponins yesterday, will also check cardiac enzymes and ekg to verify it is not cardiac in nature. WBC is improved. Needs continued steroids, nebs, antibiotics. <Regina Rucker - Last Filed: 03/28/17 16:21>
[2017-03-28] MEDS: Ipratropium Bromide 2.5 ml Neb NEB SCH ×4 (06:36→21:59)
[2017-03-28] MEDS ORDERED: Spiriva 18 MCG CAP (Box of 5 Caps) INH SCH ×2 (07:00)
[2017-03-28] MEDS: Gabapentin 300 MG CAP PO SCH ×3 (08:23→18:47)
[2017-03-28] MEDS: HYDROcodone/Acetaminophen 10/325 mg Tablet PO PRN ×2 (08:23→15:49)
[2017-03-28] MEDS: clonazePAM 0.5 MG TAB PO SCH ×2 (08:23→18:47)
[2017-03-28] MEDS ORDERED: predniSONE 20 MG TAB PO SCH (09:00)
[2017-03-28] MEDS ORDERED: Multivitamin W/ Minerals 1 TAB PO SCH (09:00)
[2017-03-28] MEDS ORDERED: Tamsulosin HCl 0.4 MG CAP PO SCH (09:00)
[2017-03-28] MEDS ORDERED: Folic Acid 1 MG TAB PO SCH (09:00)
[2017-03-28] MEDS ORDERED: Magnesium Oxide 400 MG TAB PO SCH (09:00)
[2017-03-28] MEDS ORDERED: Enoxaparin Sodium 40 MG/0.4 ML SYRINGE SC SCH (09:00)
[2017-03-28] MEDS ORDERED: Famotidine 20 MG TAB PO PRN (10:42)
[2017-03-28 12:28] LABS: CKMB 3.4 ng/mL (0-6.6); Troponin I 0.032 ng/mL (< 0.028)
[2017-03-28] MEDS ORDERED: diphenhydrAMINE 25 MG CAP PO PRN (13:43)
--- NOTE | 2017-03-28 14:42 | PDOC.EVN ---
Event Note - Event Note Event Note: Requested to come to patient room to answer questions. Patient upset because he has not been receiving his exact medications, but the generic equivalents. He was also upset about the timing of him receiving his medications. I explained that there are some brand name medications that the hospital does not carry. I also explained to him that some of his medications are PRN and he will only receive them if they are requested. Patient complains of continued cough and wheezes. Also states that he forgot to mention that prednisone causes him itching. Exam: Gen: in no acute distress CV: RRR no murmurs Resp: Diffuse wheezes, L greater than R Ext: No cyanosis edema Plan: Patient expressed understanding of the situation and appreciated me visiting with him and answering his questions. Expressed to him that we would continue the current management and I would give him an alternative to prednisone and give him benadryl for the itching.
--- NOTE | 2017-03-28 15:39 | EKG ---
Test Reason : Blood Pressure : / mmHG Vent. Rate : 093 BPM Atrial Rate : 093 BPM P-R Int : 150 ms QRS Dur : 088 ms QT Int : 366 ms P-R-T Axes : 049 -03 041 degrees QTc Int : 455 ms Normal sinus rhythm Normal ECG Confirmed by ERYN MARY, ZANE ([id number]), dictionary editor GABBIE PARK ([id number]) on 03/28/2017 3:39:02 PM Referred By: Confirmed By:ZANE CERNA MD
[2017-03-28] MEDS: Albuterol Sulfate 2.5 mg/3 ml Neb NEB SCH (18:33)
[2017-03-28] MEDS: Fluticasone Propionate Nasal Spray 16 gm Bottle NASAL SCH ×2 (18:51→20:45)
[2017-03-28] MEDS ORDERED: HYDROcodone/Acetaminophen 10/325 mg Tablet PO SCH ×2 (21:00)
[2017-03-29] MEDS: Ipratropium Bromide 2.5 ml Neb NEB SCH ×2 (02:37→07:00)
[2017-03-29 05:05] VITALS: BP 135/83; TEMP 98.4
--- NOTE | 2017-03-29 05:51 | PDOC.FM ---
- Subjective Subjective: Mr. Muniz is doing well this morning, states that his breathing is improved from yesterday. He does endorse acid reflux this morning though. He denies any fever, dyspnea, chest pain, n/v/d. - Objective MAR Reviewed: Yes Vital Signs & Weight: Vital Signs (12 hours) Temp Pulse Resp BP Pulse Ox 03/29/17 04:00 98.4 F 85 20 135/83 93 L 03/29/17 02:37 85 16 95 03/29/17 00:00 97.7 F 93 20 126/74 95 03/28/17 21:59 98 16 94 L 03/28/17 20:20 96.4 F L 96 20 135/80 95 03/28/17 20:00 96.4 F L 96 20 135/80 03/28/17 18:33 100 20 94 L 03/28/17 18:32 100 20 94 L Weight Admit Weight 100.244 kg Weight 100.244 kg I&O: 03/27/17 03/28/17 03/29/17 06:59 06:59 06:59 Intake Total 940 1900 Balance 940 1900 Result Diagrams: 03/29/17 06:09 03/28/17 04:56 <Luis Barnard - Last Filed: 03/29/17 06:43> - Objective Vital Signs & Weight: Vital Signs (12 hours) Pulse Ox 03/29/17 07:01 94 L Weight Admit Weight 100.244 kg Weight 100.244 kg I&O: 03/28/17 03/29/17 03/30/17 06:59 06:59 06:59 Intake Total 940 1900 Balance 940 1900 Result Diagrams: 03/29/17 06:09 03/29/17 06:09 <Regina Rucker - Last Filed: 03/29/17 16:34> Phys Exam - Physical Examination Constitutional: NAD HEENT: moist MMs, sclera anicteric Neck: no JVD, supple, full ROM Respiratory: no wheezing, no rales, no rhonchi, clear to auscultation bilateral significant improvement from yesterday Cardiovascular: RRR, no significant murmur Gastrointestinal: soft, non-tender Musculoskeletal: no edema Neurological: non-focal, normal sensation, moves all 4 limbs Psychiatric: normal affect, A&O x 3 <Akil,Luis - Last Filed: 03/29/17 06:43> Dx/Plan (1) COPD with exacerbation Code(s): J44.1 - CHRONIC OBSTRUCTIVE PULMONARY DISEASE W (ACUTE) EXACERBATION Status: Acute Plan: O2 sats in 70s at outside facility. Sats improved by the time pt reached [facility], after receiving IV solu-medrol, duonebs, IV levaquin Patient has been satting in the 93-95% on RA No consolidation on CXR, Resp Panel positive for RSV Continue current treatment for COPD, patient stable. Likely ready for d/c with close OP f/u today (2) Chronic pain Code(s): G89.29 - OTHER CHRONIC PAIN Status: Chronic Plan: Continue home meds, so as not to ellicit withdrawal (3) Alcohol abuse Code(s): F10.10 - ALCOHOL ABUSE, UNCOMPLICATED Status: Chronic Plan: ASE protocol, monitor symptoms (4) Hyperlipidemia Code(s): E78.5 - HYPERLIPIDEMIA, UNSPECIFIED Status: Chronic Plan: Continue home meds (5) PTSD (post-traumatic stress disorder) Code(s): F43.10 - POST-TRAUMATIC STRESS DISORDER, UNSPECIFIED Status: Chronic Plan: Cont home meds <Luis Barnard - Last Filed: 03/29/17 06:43> Attending Addendum - Attending Addendum I personally evaluated the patient and discussed the management with Dr. Barnard. I agree with the History, Examination, Assessment and Plan documented above with any addition or exceptions noted below. The patient was up walking in the halls without shortness of breath. He is feeling much better. Will discharge home on current meds. Will f/u with me later in the week. <Regina Rucker - Last Filed: 03/29/17 16:34>
[2017-03-29 06:22] LABS: #Eosinphils 0.1 thou/uL (0.0-0.7); #Lymphocytes 3.6 thou/uL (1.20-3.40); #Monocytes 0.9 thou/uL (0.11-0.59); #Neutrophils 12.2 thou/uL (1.40-6.50); %Basophils 0.2 % (0.0-1.0); %Eosinophils 0.3 % (0.0-10.0); %Lymphocytes 21.3 % (21.0-51.0); %Monocytes 5.2 % (0.0-10.0); Hemoglobin 14.3 g/dL (14.0-18.0); Mean Corpuscular HGB CONC 32.9 g/dL (32.0-36.0); Mean Corpuscular Hemoglobin 33.3 pg (27.0-31.0); Mean Platelet Volume 7.5 fL (7.4-10.4); Platelet Count 193 thou/uL (130-400); RBC Distribution Width 12.8 % (11.5-14.5); Red Blood Cell (RBC) Count 4.28 mill/uL (4.70-6.10); White Blood Cell (WBC) Count 16.7 thou/uL (4.8-10.8)
[2017-03-29 06:45] LABS: Anion Gap 12 mmol/L (10-20); BUN (Urea Nitrogen) 24 mg/dL (8.4-25.7); Calc. Creatinine Clearance 115 mL/min (70-130); Calcium 9.3 mg/dL (7.8-10.44); Carbon Dioxide 27 mmol/L (23-31); Chloride 105 mmol/L (98-107); Estimated GFR-MDRD Greater than 90; Glucose 96 mg/dL (83-110); Potassium 3.9 mmol/L (3.5-5.1); Sodium 140 mmol/L (136-145)
[2017-03-29] MEDS: Albuterol Sulfate 2.5 mg/3 ml Neb NEB SCH (07:00)
[2017-03-29] MEDS ORDERED: predniSONE 20 MG TAB PO SCH (08:00)
--- NOTE | 2017-03-29 14:31 | DIS-2 ---
DATE OF ADMISSION: 03/27/2017 DATE OF DISCHARGE: 03/29/2017 RESIDENT: Luis Barnard M.D. ADMITTING ATTENDING: Regina Rucker M.D. DISCHARGE ATTENDING: Regina Rucker M.D. CONSULTATIONS: None. PROCEDURES: 1. Chest x-ray on 03/27/2017 showed no acute cardiopulmonary processes. 2. Blood culture is no growth to date. 3. Influenza A and B negative. 4. Respiratory virus panel positive for RSV-A. PRIMARY DIAGNOSIS: Chronic obstructive pulmonary disease exacerbation. SECONDARY DIAGNOSES: 1. Indeterminate troponin. 2. Chronic pain. 3. Alcohol abuse. 4. Posttraumatic stress disorder. 5. Hyperlipidemia. DISCHARGE MEDICATIONS: Resume all home medications as below. 1. Flunisolide 2 sprays each naris daily. 2. Albuterol sulfate 2 puffs INH q.6 hours p.r.n. 3. Senna 1 tablet p.o. at bedtime. 4. Vitamin B12 1000 mcg p.o. daily. 5. [place] 3 fatty acids 1 cap p.o. t.i.d. 6. Symbicort 160/4.5 two puffs INH b.i.d. 7. Spiriva 2 INH daily. 8. Zyrtec 10 mg p.o. at bedtime. 9. Aspirin 81 mg p.o. daily. 10. Clonazepam 0.5 mg p.o. b.i.d. 11. Benadryl 25 mg p.o. q.6 hours p.r.n. 12. Duloxetine 60 mg p.o. daily. 13. Famotidine 20 mg p.o. b.i.d. p.r.n. 14. Folic acid 1 mg p.o. daily. 15. Gabapentin 300 mg p.o. t.i.d. 16. [place] 10/325 two tab p.o. t.i.d. 17. Ibuprofen 800 mg p.o. q.8 hours p.r.n. 18. Methocarbamol 500 mg p.o. q.i.d. 19. Tamsulosin 0.4 mg p.o. daily. 20. Trazodone HCL 100 mg p.o. at bedtime p.r.n. NEW HOME MEDICATIONS: 1. Levaquin 750 mg p.o. for 5 days. 2. Protonix 40 mg p.o. daily. 3. Prednisone 40 mg p.o. q.a.m. with meals for 3 more days. HISTORY OF PRESENT ILLNESS AND HOSPITAL COURSE: Renard Muniz is a 71-year-old male with past medical history of hyperlipidemia, chronic pain managed by Dr. Patel in [place] and chronic obstructive pulmonary disease who presents with a 4 day history of increased productive cough and shortness of breath. Patient states that his has been sick with upper respiratory symptoms and his symptoms have progressively worsened to the point where yesterday was having significant difficulty breathing. He was seen in Dr. Rucker's clinic by JONATHAN the morning of admission and had a temperature of 102. He was sent to [facility]. There he had a white count of 22 and an indeterminate troponin of 0.11. He was transferred to [facility]. He received IV Levaquin 125 mg, IV Solu-Medrol, aspirin and DuoNebs. The patient endorses that he is a 90-yerw-cied smoker, but he quit 10 years ago. On admission, the patient's blood pressure 130/67, pulse 92, respiratory rate 20 , temperature 98.5, pulse ox 94% on room air. The patient's O2 sat was in the 70s in the clinic in [place]. The patient's lungs had wheezes diffusely. Patient's physical exam was otherwise normal. Labs on admission, he had a white blood cell count of 22.4 with 74% neutrophils, had a lactic acid of 0.9. Influenza A and B were negative. EKG showed normal sinus rhythm. X-ray read, no acute cardiopulmonary processes. He has a troponin of 0.116 and a BNP of 67.1. He was admitted, given p.o. Levaquin, started on a 5-day course of 40 mg p.o. prednisone and given nebulizers. The patient had increased wheezes on the first full day of admission; however, morning of discharge on 03/29/2017, patient's respiratory status had improved significantly. There were no wheezes on exam and his breathing was much easier for him. Throughout the entire admission, his O2 sats were anywhere from 93-95 on room air. He never required O2 while in the hospital. The patient was ready for discharge on 03/29/2017 with instructions to go home and continue home medications as well as continue 3 additional days of prednisone and 4 more days of Levaquin. The patient was in agreement with this plan and was also instructed to follow up with Dr[facility] on Thursday or Thursday. The patient stated that he would and he was thankful for his care. DISPOSITION: The patient should do well if he continues his antibiotics and steroids. He was stable on discharge. DISCHARGE INSTRUCTIONS: 1. Location: Home. 2. Diet: Heart healthy. 3. Activity: As tolerated. 4. Follow up with Dr. [facility] in [place] on Thursday or Thursday. LUIS ANGEL
--- NOTE | 2017-04-02 19:42 | EKG ---
Test Reason : Blood Pressure : / mmHG Vent. Rate : 104 BPM Atrial Rate : 104 BPM P-R Int : 144 ms QRS Dur : 092 ms QT Int : 346 ms P-R-T Axes : 060 001 055 degrees QTc Int : 454 ms Poor data quality, interpretation may be adversely affected Sinus tachycardia Otherwise normal ECG When compared with ECG of 27-MAR-2017 15:04, No significant change was found Confirmed by RAJENDRA SMITH ([id number]) on 04/02/2017 7:42:12 PM Referred By: DANNY Confirmed By:RAJENDRA SMITH
== END 2017-03-29 09:30 | disposition home or self-care (01) | DRG 192 ==
LOC: ERS 14:41 → ERHOLD 15:15 → 2NO 18:48
PROVIDERS: ADMIT Family Medicine; ATTEND Family Medicine
DX: J44.1 Chronic obstructive pulmonary disease with (acute) exacerbation (principal); B97.4 Respiratory syncytial virus as the cause of diseases classified elsewhere; E78.5 Hyperlipidemia, unspecified; F10.10 Alcohol abuse, uncomplicated; G89.29 Other chronic pain; F43.10 Post-traumatic stress disorder, unspecified; Z87.891 Personal history of nicotine dependence; F11.90 Opioid use, unspecified, uncomplicated; Z96.653 Presence of artificial knee joint, bilateral; Z96.612 Presence of left artificial shoulder joint; Z96.611 Presence of right artificial shoulder joint; K21.9 Gastro-esophageal reflux disease without esophagitis; N40.0 Benign prostatic hyperplasia without lower urinary tract symptoms; M19.90 Unspecified osteoarthritis, unspecified site; Z87.01 Personal history of pneumonia (recurrent); R79.89 Other specified abnormal findings of blood chemistry
CPT/HCPCS: 36415; 80048; 80061; 82553; 84484; 85025; 87633; 93005; 93010; 94640; 94760; G8978-GP-CH; G8979-GP-CH; G8980-GP-CH; J1650; J3411; J3475; J7050; J7506; J7611; J7644

== ENCOUNTER 2017-04-06 09:05 | Day surgery (SDC) | payer MEDICARE ==
[2017-04-03 10:25] VITALS: BMI 34.1
[~2017-04-06 09:05] MED LIST: FLU VACC TS2017-18 (>65YR) 0.5 ML SYRINGE IM ONE
[2017-04-06 10:21] VITALS: BP 157/83; TEMP 97.4
--- NOTE | 2017-04-06 12:16 | CT ---
RADIOGRAPHIC IMAGING FOR MYELOGRAM: Date: 04/06/17 CLINICAL HISTORY: Lumbar spondylosis without myelopathy. PROCEDURE: Informed consent was obtained from the patient. The patient was escorted to the procedure suite. Scou t imaging was acquired. On soaker soda worker imaging, there is evidence of extensive multilevel hardware fixation of the lumbar spine, as well as osseous overgrowth of the posterior elements. Attempt, at several le vels of the lumbar spine was performed under fluoroscopy, with inability to penetrate the posterior o sseous hypertrophy. Patient was moved to CT. The imaged lumbosacral spine, below level of fusion, dem onstrated osseous overgrowth posteriorly, preventing posterior approach to the lumbar spinal canal. A ttempt was performed at a level of osseous fusion by CT imaging, which was markedly limited due to th e streak artifact from hardware. Osseous overgrowth was present at this level as well, preventing ent ry into the posterior aspect of the thecal sac. Fluoro Dose: 0.3 minutes intermittent fluoroscopy, 41.8 mGy*cm^2. IMPRESSION: Attempt at spinal myelogram was performed with fluoroscopic and CT imaging, although diffuse osseous hypertrophy/overgrowth of the posterior paraspinous region did prevent entry into the thecal sac. POS: LIZETH
== END 2017-04-06 12:15 | disposition home or self-care (01) ==
LOC: RAD 09:05
PROVIDERS: ATTEND Neurological Surgery
DX: M47.812 Spondylosis without myelopathy or radiculopathy, cervical region (principal); Q76.2 Congenital spondylolisthesis; I10 Essential (primary) hypertension; J45.909 Unspecified asthma, uncomplicated; G89.29 Other chronic pain; Z88.0 Allergy status to penicillin; Z91.040 Latex allergy status; Z79.899 Other long term (current) drug therapy; Z98.890 Other specified postprocedural states
CPT/HCPCS: 62305; 77002

== ENCOUNTER 2017-04-21 10:23 | Day surgery (SDC) | payer MEDICARE ==
[2017-04-20 16:28] VITALS: BMI 34.2
[2017-04-21] MEDS ORDERED: Midazolam HCl 2 mg/2 ml Vial ONE (11:16)
[2017-04-21] MEDS ORDERED: Fentanyl 100 MCG/2 ML VIAL ONE ×3 (11:16→12:54)
[2017-04-21] MEDS ORDERED: Albuterol Sulfate HFA (OR ONLY) ONE (11:18)
[2017-04-21 11:37] LABS: Anion Gap 10 mmol/L (10-20); BUN (Urea Nitrogen) 14 mg/dL (8.4-25.7); Calc. Creatinine Clearance 109 mL/min (70-130); Calcium 9.4 mg/dL (7.8-10.44); Carbon Dioxide 31 mmol/L (23-31); Chloride 105 mmol/L (98-107); Estimated GFR-MDRD Greater than 90; Glucose 101 mg/dL (83-110); Potassium 4.2 mmol/L (3.5-5.1); Sodium 142 mmol/L (136-145)
[2017-04-21] MEDS ORDERED: Iopamidol-M 300 61% 15 ML VIAL ONE (12:30)
--- NOTE | 2017-04-21 14:41 | CT ---
CT GUIDED CERVICAL MYELOGRAM: Clinical history: Cervical spondylosis, neck pain. Procedure: Informed consent was obtained. The patient was escorted to the procedural suite. Patient was provided sedation through the anesthesia department. Please reference the separate anesthesia report for deta ils. Toll Test Desk Worker imaging was performed. Appropriate positioning of the C1-2 level was performed and the patient' s left neck was then prepped and draped in standard sterile fashion and topical anesthesia buffered w ith 1% lidocaine was performed. Subsequently, uneventful access into the thecal sac was achieved with a 22 gauge needle which was advanced into the posterior thecal sac of the C1-2 level from a left lat eral approach under CT fluoroscopic guidance. Appropriate positioning was confirmed with a small volu me of contrast. Subsequently, 9 cc of contrast (Isovue M300) was instilled under low pressure into th e thecal sac. Needle was removed. Imaging was performed to confirm appropriate opacification of the s ubarachnoid space. IMPRESSION: 1. Technically successful CT guided cervical myelogram. 2. Please reference the myelogram diagnostic report for details regarding findings within the cervica l spine. POS: LIZETH
--- NOTE | 2017-04-21 14:43 | CT ---
CERVICAL SPINE CT WITH CONTRAST: CT CERVICAL MYELOGRAM: CLINICAL HISTORY: Cervical radiculopathy. Neck pain. FINDINGS: There is appropriate contrast opacification of the thecal sac throughout the cervical spine vertebral column. C1-C2: There is no significant central canal stenosis at C1-C2. C2-C3: There is a mild, broad-based osteophyte ridge. Bilateral uncinate process hypertrophy is pre sent with mild osseous narrowing of each neural foramen. C3-C4: There is a left asymmetric broad-based disk osteophyte with mild narrowing of the central can al, more notable to the left. There is moderate osseous compromise of the left neural foramen due to uncinate process hypertrophy and facet hypertrophy. Mild right neural foraminal narrowing is presen t. There is mild ventral cord effacement. There is anterior metallic fusion of the C4 and C5 segments with osseous incorporation of the saxman disk space, which contains a prosthetic disk device. No obvious hardware complication. At this leve l there is no high grade central canal stenosis. There is bilateral uncinate process hypertrophy and facet hypertrophy, which results in moderate to severe left and moderate right foraminal stenosis. C5-C6: There is a broad-based disk osteophyte with mild effacement of the ventral thecal sac. There is uncinate process and facet hypertrophy bilaterally. There is moderate to severe right and modera te left foraminal stenosis. C6-C7: There is a broad-based disk osteophyte with mild narrowing of the central canal. There is mo derate to severe right and mild to moderate left foraminal stenosis. C7-T1: No high grade central canal or foraminal stenosis. Streak artifact at this level does limit sensitivity. There is a focal lucency of the C3 vertebral body, which is too small to characterize, although may r elate to an interosseous hemangioma or focal fat rest. Partially imaged patchy opacification is seen at the right upper lung zone. There is vascular calcif ication. IMPRESSION: Multilevel degenerative changes of the postoperative cervical spine, as outlined above. POS: LIZETH
[2017-04-21] MEDS ORDERED: PHENYLEPHRINE-NS 100 MCG/ML 10 ML SYRINGE ONE (15:08)
[2017-04-21] MEDS ORDERED: Ondansetron HCl/PF 4 MG/2 ML Vial ONE (15:08)
[2017-04-21] MEDS ORDERED: Lidocaine 1% PF 5 ML VIAL ONE (15:08)
[2017-04-21] MEDS ORDERED: PROPOFOL 200 MG/20 ML VIAL ONE (15:08)
== END 2017-04-21 14:20 | disposition home or self-care (01) ==
LOC: SDC/OP 10:23
PROVIDERS: ATTEND Neurological Surgery
DX: M47.812 Spondylosis without myelopathy or radiculopathy, cervical region (principal); Q76.2 Congenital spondylolisthesis; I10 Essential (primary) hypertension; J45.909 Unspecified asthma, uncomplicated; G89.29 Other chronic pain; Z88.0 Allergy status to penicillin; Z79.899 Other long term (current) drug therapy; Z98.890 Other specified postprocedural states
CPT/HCPCS: 36415; 72126; 77002; 80048; 96374; J2001; J2250; J2405; J2704; J3010

== ENCOUNTER 2017-04-30 07:42 | Day surgery (SDC) | payer MEDICARE ==
[2017-04-30] MEDS ORDERED: Diprivan 20 ML ONE (09:20)
[2017-04-30] MEDS ORDERED: Fentanyl 100 MCG/2 ML VIAL ONE ×4 (09:20→14:04)
[2017-04-30] MEDS ORDERED: Midazolam HCl 2 mg/2 ml Vial ONE ×2 (09:20→14:28)
[2017-04-30] MEDS ORDERED: HYDROmorphone 0.5 MG/0.5 ML SYRINGE ONE ×7 (11:45→18:04)
--- NOTE | 2017-04-30 12:59 | CT ---
CT GUIDED THORACIC AND LUMBAR MYELOGRAM: CLINICAL HISTORY: Back pain and lumbar radiculopathy. PROCEDURE: Informed consent was obtained. The patient was escorted to the procedural suite. The patient was pr ovided anesthesia through the anesthesia department. Please reference the separate anesthesia report for details. Compression Molding Machine Setter imaging was performed of the cervical spine. Appropriate positioning of the C1-2 level was per formed and the patient's left neck was prepped and draped in a standard sterile fashion, and topical anesthesia was achieved with 1% Lidocaine. Subsequently, uneventful access into the thecal sac was a chieved with a 22-gauge needle which was advanced into the posterior thecal sac of the C1-2 level fro m a left lateral approach, under CT fluoroscopic guidance. Clear colorless CSF was present at the ne edle hub and appropriate positioning was confirmed with a small volume of contrast. Subsequently, 10 cc of contrast ([id number]-M 300) was instilled under low pressure into the thecal sac. The needle was removed. Imaging was performed to confirm appropriate opacification within the thecal sac. IMPRESSION: Technically successful CT-guided thoracic and lumbar myelogram procedure. Please reference the diagnostic reports of the thoracic and lumbar spine for details regarding the se parate spinal segments. POS: [facility]
[2017-04-30] MEDS ORDERED: Propofol 200 MG/20 ML VIAL ONE (13:05)
[2017-04-30] MEDS ORDERED: PHENYLEPHRINE-NS 100 MCG/ML 10 ML SYRINGE ONE (13:05)
[2017-04-30] MEDS ORDERED: ePHEDrine/0.9% NaCl/PF SYRINGE 50 mg/10 ml ONE (13:05)
[2017-04-30] MEDS ORDERED: Ondansetron HCl/PF 4 MG/2 ML Vial ONE (13:05)
[2017-04-30] MEDS ORDERED: Lidocaine 1% PF 5 ML VIAL ONE (13:05)
[2017-04-30] MEDS ORDERED: Glycopyrrolate 0.2 MG/ML 5 ML SYRINGE ONE (13:05)
[2017-04-30] MEDS ORDERED: HYDROcodone/Acetaminophen 5/325 mg Tablet ONE (13:24)
--- NOTE | 2017-04-30 13:40 | CT ---
CT LUMBAR SPINE WITH CONTRAST CT LUMBAR MYELOGRAM: CLINICAL HISTORY: Low back pain, lumbar radiculopathy. FINDINGS: There is extensive beam hardening and streak artifact throughout the lumbar spine as a result of post erior metallic fusion that spans L1 through S1 with multilevel bilateral pedicle screws and bilateral vertical interconnecting rods and a conjoining crossbar at the L4 level. There is an anteriorly loc ated metallic screw from the S1 vertebral segment to the right of midline. The degree of streak devonte fact does markedly limit the evaluation and reduce sensitivity of the exam. At the L1-2 and L2-3 lev els, there is no high-grade osseous compromise of the thecal sac. There is mild osseous compromise o f the bilateral neural foramina of L1-2 and L2-3 levels. L3-4: There is mild effacement of the ventral thecal sac. Contents of the vertebral canal are marke dly limited by the degree of artifact. There is mild to moderate osseous narrowing of each neural fo ramen. L4-5: Effacement of ventral thecal sac by a broad-based osteophyte is markedly limited by artifact. There is mild osseous narrowing of the right neural foramen. No obvious left foraminal stenosis of significance. L5-S1: Effacement of the ventral thecal sac by broad-based osteophyte. There is marked limitation t o evaluation of each neural foramen, although suggestion of a mild to moderate degree of osseous comp romise of each neural foramen. Incidental note of atherosclerosis. Suggestion of partially imaged hypodensities of the right kidney that may relate to cystic structures, although cannot be confirmed on this exam. There are colonic diverticula. IMPRESSION: Extensive postoperative change of the lumbar spine with multilevel degenerative changes as outlined a patricia. Details are markedly limited by the degree of streak and beam-hardening artifact which does pr eclude reliable visualization throughout the majority of the lumbar spine. POS: LIZETH
[2017-04-30] MEDS ORDERED: diphenhydrAMINE 50 MG/ML VIAL ONE (14:05)
--- NOTE | 2017-04-30 14:09 | CT ---
THORACIC SPINE CT WITH CONTRAST THORACIC SPINE MYELOGRAM: CLINICAL HISTORY: Back pain, radiculopathy. FINDINGS: Evaluation is limited due to scattered artifacts, notably related to beam-attenuation artifact, as we ll as artifact from subjacent lumbar spine hardware. There is multilevel end plate irregularity throughout the thoracic spine with prominent marginal oste ophyte formation as well as multilevel end plate sclerosis and gas-vacuum phenomenon within the disk spaces. No acute compression deformity or significant subluxation. 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 The thoracic spinal cord, within limitations, reveals no pathologic expansile p rocess. There is limited visualization of the lower aspect of the imaged cord due to the streak devonte fact from indwelling hardware of the upper lumbar region. There is bilateral pulmonary parenchymal c onsolidation containing air bronchograms. The patient was sedated and intubated during the exam and, therefore, this may relate to a component of atelectasis. Superimposed pneumonia is not excluded. Correlate clinically. T8-9: There is a right asymmetric osteophyte with mild effacement of the ventral thecal sac, althoug h no significant cord deformity or high-grade osseous compromise of the left neural foramen. There i s mild to moderate right foraminal osseous compromise. T9-10: There is a broad-based disk-osteophyte with mild right hemicord flattening and mild central c anal stenosis. Mild to moderate osseous compromise of the right neural foramen is present. There is no high-grade left foraminal stenosis. T10-11: Broad-based disk-osteophyte is present with mild effacement of the ventral thecal sac. Ther e is mild to moderate right and mild left osseous compromise of the neural foramina. T11-12: There is mild central canal narrowing as a result of broad-based disk-osteophyte with mild v entral cord flattening, and moderate biforaminal osseous compromise. T12-L1: Broad-based osteophyte ridge is present without obvious underlying cord deformity within mcgee itations. There is mild to moderate right osseous compromise of the neural foramen. No high-grade o sseous compromise in the left neural foramen. There is incidental note of hypoattenuation involving the right kidney favoring cyst formation, altho ugh incompletely assessed. IMPRESSION: Multilevel degenerative change throughout the thoracic spine, more pronounced at the mid to lower asp ect, as discussed above. POS: [facility]
[2017-04-30] MEDS ORDERED: Dexamethasone 4 mg/ml Vial ONE (14:51)
[2017-04-30] MEDS ORDERED: tiZANidine HCl 4 MG TAB ONE (17:38)
[2017-04-30] MEDS ORDERED: HYDROcodone/Acetaminophen 10/325 mg Tablet ONE (18:20)
== END 2017-04-30 19:20 | disposition home or self-care (01) ==
LOC: SDC/OP 07:42
PROVIDERS: ATTEND Neurological Surgery
PROC: 3E0R3KZ Introduction of Other Diagnostic Substance into Spinal Canal, Percutaneous Approach (ICD-10-PCS; principal; 2017-04-30)
PROC: B02B1ZZ Computerized Tomography (CT Scan) of Spinal Cord using Low Osmolar Contrast (ICD-10-PCS; 2017-04-30)
DX: Q76.2 Congenital spondylolisthesis (principal); M54.16 Radiculopathy, lumbar region; I10 Essential (primary) hypertension; J45.909 Unspecified asthma, uncomplicated; J44.9 Chronic obstructive pulmonary disease, unspecified; E78.5 Hyperlipidemia, unspecified; K21.9 Gastro-esophageal reflux disease without esophagitis; F41.9 Anxiety disorder, unspecified; F43.10 Post-traumatic stress disorder, unspecified; Z79.82 Long term (current) use of aspirin; Z79.891 Long term (current) use of opiate analgesic; Z79.51 Long term (current) use of inhaled steroids; Z79.899 Other long term (current) drug therapy; Z88.0 Allergy status to penicillin; Z91.040 Latex allergy status; Z96.653 Presence of artificial knee joint, bilateral; Z96.612 Presence of left artificial shoulder joint; Z96.611 Presence of right artificial shoulder joint; Z90.89 Acquired absence of other organs; Z98.890 Other specified postprocedural states; Z87.891 Personal history of nicotine dependence
CPT/HCPCS: 72129; 72132; 77002; 96374; 96375; J1100; J1170; J1200; J2250; J2270; J2704; J3010

== ENCOUNTER 2017-05-11 06:57 | Outpatient (CLI) | payer MEDICARE ==
--- NOTE | 2017-05-11 11:16 | CT ---
CT RIGHT SHOULDER WITHOUT CONTRAST: INDICATIONS: History of right total shoulder replacement with persistent right shoulder pain for the last month. The patient had a history of the shoulder replacement nine months ago. COMPARISON: MRI of the right shoulder dated 04/18/2015. FINDINGS: There is a reverse total shoulder prosthesis that is in the expected position without gross evidence of periprosthetic loosening. No acute osseous abnormality is evident. There is stable moderate AC j oint osteoarthrosis. There is mild muscular atrophy of the supraspinatus and infraspinatus. The sub scapularis is not well seen but there is also suggested mild subscapularis muscular atrophy. Beam sc attering artifact and beam hardening artifact slightly limits image detail of the examination. The v isualized right lung is clear. No lymphadenopathy is evident. IMPRESSION: Right reverse total shoulder prosthesis without overt evidence of complication. POS: LIZETH
== END 2017-05-11 06:58 | disposition home or self-care (01) ==
LOC: SCSCT 06:57
PROVIDERS: ATTEND Orthopaedic Surgery
DX: M25.511 Pain in right shoulder (principal); Z96.611 Presence of right artificial shoulder joint

== ENCOUNTER 2017-06-23 13:30 | Inpatient (IN) | payer MEDICARE ==
[2017-06-23 14:49] VITALS: BMI 35.5
[2017-06-29] MEDS ORDERED: Clindamycin/D5W 900 mg/50 ml Premix Bag ONE (10:59)
[2017-06-29] MEDS ORDERED: Levofloxacin 500 mg/D5W 100 ml Premix Bag ONE (10:59)
[2017-06-29] MEDS ORDERED: Morphine 4 MG/ML VIAL ONE ×4 (11:48→15:14)
[2017-06-29] MEDS ORDERED: Fentanyl 100 MCG/2 ML VIAL ONE (12:58)
[2017-06-29] MEDS ORDERED: Sodium Chloride 0.9% 10 ML ONE (13:00)
[2017-06-29] MEDS ORDERED: Midazolam HCl 2 mg/2 ml Vial ONE (13:09)
[2017-06-29] MEDS ORDERED: HYDROmorphone 0.5 MG/0.5 ML SYRINGE ONE ×4 (13:13→15:14)
[2017-06-29] MEDS ORDERED: HYDROmorphone 2 MG/ML VIAL SLOW IVP PRN (14:47)
[2017-06-29] MEDS ORDERED: Promethazine HCl 25 MG/ML VIAL SLOW IVP PRN (14:47)
[2017-06-29] MEDS ORDERED: Morphine Sulfate 2 MG/ML SYRINGE SLOW IVP PRN (14:47)
[2017-06-29] MEDS ORDERED: Ondansetron HCl/PF 4 MG/2 ML Vial IVP PRN ×2 (14:47→18:10)
[2017-06-29] MEDS ORDERED: Promethazine HCl 25 MG/ML VIAL IM PRN ×2 (14:47→18:05)
[2017-06-29] MEDS ORDERED: tiZANidine HCl 4 MG TAB ONE (14:59)
[2017-06-29] MEDS ORDERED: Lorazepam 2 MG/ML VIAL ONE (15:06)
[2017-06-29] MEDS ORDERED: Lorazepam 2 MG/ML VIAL SLOW IVP PRN (15:25)
[2017-06-29] MEDS ORDERED: tiZANidine HCl 4 MG TAB PO SCH (16:00)
[2017-06-29] MEDS ORDERED: Lidocaine 1% PF 5 ML VIAL ONE (16:42)
[2017-06-29] MEDS ORDERED: Glycopyrrolate 0.2 MG/ML 5 ML SYRINGE ONE (16:42)
[2017-06-29] MEDS ORDERED: Dexamethasone 20 MG/5 ML VIAL ONE (16:42)
[2017-06-29] MEDS ORDERED: PROPOFOL 200 MG/20 ML VIAL ONE (16:42)
[2017-06-29] MEDS ORDERED: PHENYLEPHRINE-NS 100 MCG/ML 10 ML SYRINGE ONE (16:42)
[2017-06-29] MEDS ORDERED: Ondansetron HCl/PF 4 MG/2 ML Vial ONE (16:42)
[2017-06-29] MEDS ORDERED: PROVENTIL INHALER 6.7 G (200 INHALATIONS) INH PRN (17:50)
[2017-06-29] MEDS ORDERED: HYDROcodone/Acetaminophen 10/325 mg Tablet PO PRN ×2 (17:54→18:05)
[2017-06-29] MEDS ORDERED: Ipratropium Bromide 2.5 ml Neb NEB SCH (18:00)
[2017-06-29] MEDS ORDERED: traZODone HCl 50 MG TAB PO PRN ×2 (18:02→19:06)
[2017-06-29] MEDS ORDERED: diphenhydrAMINE 25 MG CAP PO PRN (18:05)
[2017-06-29] MEDS ORDERED: Mag-Al 1200 mg/1200 mg/30 ML UDCUP PO PRN (18:05)
[2017-06-29] MEDS ORDERED: Milk Of Magnesia 30 ML UDCUP PO PRN (18:05)
[2017-06-29] MEDS ORDERED: Promethazine 25 MG TAB PO PRN (18:05)
[2017-06-29] MEDS ORDERED: diphenhydrAMINE 50 MG/ML VIAL IVP PRN (18:05)
[2017-06-29] MEDS ORDERED: traMADol HCl 50 MG TAB PO PRN ×2 (18:05)
[2017-06-29] MEDS ORDERED: Promethazine HCl 12.5 MG SUPP PR PRN (18:05)
[2017-06-29] MEDS ORDERED: Morphine 4 MG/ML VIAL SLOW IVP PRN (18:08)
[2017-06-29] MEDS ORDERED: Mometasone/Formoterol 120 PUFF INHALER INH SCH (18:30)
--- NOTE | 2017-06-29 18:54 | PDOC.PN ---
- Subjective Encounter Start Date: 06/29/17 Encounter Start Time: 18:00 Patient is admitted for C1/ C2 Fusion surgery by Dr. schuster, Hospitalist is consulted for medical management, as patient H/o COPD on inhalers at home. Pt is Drowsy and confused, Discussed with at bedside, he denies any pain now, No nausea or No SOb or Chest pain noted. - Objective MAR Reviewed: Yes Vital Signs & Weight: Vital Signs (12 hours) Temp Pulse Resp BP Pulse Ox 06/29/17 16:55 97.6 F 113 H 18 129/86 93 L Weight Weight 220 lb Radiology Reviewed by me: Yes Phys Exam - Physical Examination HEENT: PERRLA, moist MMs Neck: no nodes, no JVD Respiratory: no wheezing, no rales Cardiovascular: RRR, no significant murmur Gastrointestinal: soft, non-tender Musculoskeletal: no edema, pulses present Neurological: non-focal, normal sensation Psychiatric: normal affect, A&O x 3 Skin: no rash, normal turgor Dx/Plan (1) S/P cervical spinal fusion Status: Acute Comment: Will clsoley Monitor post Op complication, With pain management by Dr. Schuster. (2) Alcohol abuse Code(s): F10.10 - ALCOHOL ABUSE, UNCOMPLICATED Status: Chronic Comment: Will start pt on Thimaine, and monitor for Acochol withdrawl with ativan 0.5mg Iv q 6hrs prn (3) COPD (chronic obstructive pulmonary disease) Status: Chronic Comment: No evidence of Exacerbation, Will do Duonebs q4hrs and Albuteral nebs as needed. (4) Hyperlipidemia Code(s): E78.5 - HYPERLIPIDEMIA, UNSPECIFIED Status: Chronic Comment: Cotninue on Home MEds. - Plan cont current plan of care, plan discussed w/ family, PT/OT, social work msw, respiratory therapy, incentive spirometry, DVT proph w/lovenox, DVT proph w/SCDs * . - Discharge Day Encounter end time: 18:45 Review of Systems - Review of Systems Eyes: negative: Pain, Vision Change, Conjunctivae Inflammation, Eyelid Inflammation, Redness, Other ENT: negative: Ear Pain, Ear Discharge, Nose Pain, Nose Discharge, Nose Congestion, Mouth Pain, Mouth Swelling, Throat Pain, Throat Swelling, Other Respiratory: negative: Cough, Dry, Shortness of Breath, Hemoptysis, SOB with Excertion, Pleuritic Pain, Sputum, Wheezing Cardiovascular: negative: chest pain, palpitations, orthopnea, paroxysmal nocturnal dyspnea, edema, light headedness, other Gastrointestinal: negative: Nausea, Vomiting, Abdominal Pain, Diarrhea, Constipation, Melena, Hematochezia, Other Musculoskeletal: negative: Neck Pain, Shoulder Pain, Arm Pain, Back Pain, Hand Pain, Leg Pain, Foot Pain, Other Skin: negative: Rash, Lesions, Isaias, Bruising, Other - Medications/Allergies Allergies/Adverse Reactions: Allergies Allergy/AdvReac Type Severity Reaction Status Date / Time Penicillins Allergy Rash Verified 06/23/17 14:50 Medications: Current Medications Hydrocodone Bitart/Acetaminophen ([place] 10/325) 1 tab PO Q4H PRN PRN Reason: PAIN (1-3) Hydrocodone Bitart/Acetaminophen ([place] 10/325) 2 tab PO Q4H PRN PRN Reason: PAIN (4-6) Al Hydroxide/Mg Hydroxide (Maalox) 30 ml PO Q4H PRN PRN Reason: Heartburn or Indigestion Albuterol Sulfate (Proventil Hfa) 2 puff INH Q6H PRN PRN Reason: Dyspnea/Wheezing/SOB Clonazepam (Klonopin) 0.25 mg PO BID CIPRIANO Cyanocobalamin (Vitamin B-12) 1,000 mcg PO DAILY CIPRIANO Diphenhydramine HCl (Benadryl) 25 mg PO Q6H PRN PRN Reason: Itching Diphenhydramine HCl (Benadryl) 25 mg IVP Q6H PRN PRN Reason: Itching Duloxetine HCl (Cymbalta) 60 mg PO HS CIPRIANO Fish Oil (Fish Oil) 1,000 mg PO HS CIPRIANO Fluticasone Propionate (Flonase Nasal [place]) 2 gm NASAL DAILY CIPRIANO Folic Acid (Folvite) 1 mg PO DAILY CIPRIANO Gabapentin (Neurontin) 300 mg PO TID CIPRIANO Sodium Chloride (Normal Saline 0.9%) 1,000 mls @ 75 mls/hr IV .[id number] CIPRIANO Clindamycin Phosphate/Dextrose (900 mg/ Device) 50 mls @ 100 mls/hr IVPB 0400, 2000 CIPRIANO Stop: 06/30/17 04:29 Ipratropium [place] (Atrovent) 2.5 ml NEB Q6HR CIPRIANO Iron/Minerals/Multivitamins (Theragran M) 1 tab PO DAILY [facility] Loratadine (Claritin) 10 mg PO BID [facility] Magnesium Hydroxide (Milk Of Magnesium) 30 ml PO Q12H PRN PRN Reason: Constipation Methocarbamol (Robaxin) 500 mg PO HS [facility] Mometasone Furoate/Formoterol Fumar (Dulera 200 Mcg/5 Mcg Inhaler) 2 puff INH BID-RT [facility] Morphine Sulfate (Morphine) 4 mg SLOW IVP Q1H PRN PRN Reason: SEVERE BREAKTHRU PAIN Morphine Sulfate (Morphine) 2 mg SLOW IVP Q1H PRN PRN Reason: MOD BREAKTHRU PAIN Otc Kcl Tab 0 each FS DAILY [facility] Tumeric Tab 0 each FS DAILY [facility] Ondansetron HCl (Zofran) 4 mg IVP Q8H PRN PRN Reason: Nausea/Vomiting Pantoprazole Sodium (Protonix) 40 mg PO DAILY [facility] Promethazine HCl (Phenergan) 12.5 mg IM Q4H PRN PRN Reason: Nausea/Vomiting Promethazine HCl (Phenergan) 12.5 mg PO Q4H PRN PRN Reason: Nausea/Vomiting Promethazine HCl (Phenergan Suppository) 12.5 mg GA Q4H PRN PRN Reason: Nausea/Vomiting Senna/Docusate Sodium (Senokot S) 1 tab PO HS [facility] Sodium Chloride (Flush - Normal Saline) 10 ml IVF Q12HR [facility] Sodium Chloride (Flush - Normal Saline) 10 ml IVF PRN PRN PRN Reason: Saline Flush Tamsulosin HCl (Flomax) 0.4 mg PO QAM [facility] Testosterone Cypionate (Depo-Testosterone) 100 mg IM .Q 30 DAYS-CALL [facility] Tizanidine HCl (Zanaflex) 4 mg PO Q6H PRN PRN Reason: MUSCLE SPASM Tramadol HCl (Ultram) 50 mg PO Q6H PRN PRN Reason: PAIN (1-3) Tramadol HCl (Ultram) 100 mg PO Q6H PRN PRN Reason: PAIN (4-6) Trazodone HCl (Desyrel) 100 mg PO HSPRN PRN PRN Reason: Insomnia
[2017-06-29] MEDS ORDERED: Albuterol Sulfate 2.5 mg/3 ml Neb NEB PRN (19:05)
[2017-06-29] MEDS ORDERED: Ibuprofen 800 MG TAB PO PRN (19:06)
[2017-06-29] MEDS: Sodium Chloride 0.9% 1,000 ML IV SCH (19:57)
[2017-06-29] MEDS: Clindamycin/D5W 900 MG in Premix Bag 1 BAG IVPB SCH (20:40)
[2017-06-29] MEDS: HYDROcodone/Acetaminophen 10/325 mg Tablet PO PRN (20:50)
[2017-06-29] MEDS ORDERED: Loratadine 10 MG TAB PO SCH (21:00)
[2017-06-29] MEDS ORDERED: DULoxetine 60 MG CAP PO SCH ×2 (21:00)
[2017-06-29] MEDS ORDERED: Fish Oil 1,000 MG CAP PO SCH ×2 (21:00)
[2017-06-29] MEDS ORDERED: Gabapentin 300 MG CAP PO SCH (21:00)
[2017-06-29] MEDS ORDERED: Methocarbamol 500 MG TAB PO SCH ×2 (21:00)
[2017-06-29] MEDS ORDERED: clonazePAM 0.5 MG TAB PO SCH (21:00)
[2017-06-29] MEDS ORDERED: Senokot S 8.6-50 MG TAB PO SCH ×2 (21:00)
[2017-06-29] MEDS: clonazePAM 0.5 MG TAB PO SCH (21:53)
[2017-06-29] MEDS: Gabapentin 300 MG CAP PO SCH (21:55)
[2017-06-29] MEDS: Cetirizine HCl 10 MG TAB PO SCH (22:35)
[2017-06-30] MEDS: tiZANidine HCl 4 MG TAB PO PRN ×2 (00:45→08:40)
[2017-06-30] MEDS: HYDROcodone/Acetaminophen 10/325 mg Tablet PO PRN ×2 (00:45→08:38)
[2017-06-30] MEDS: Morphine 4 MG/ML VIAL SLOW IVP PRN ×2 (02:37→06:37)
[2017-06-30] MEDS: Clindamycin/D5W 900 MG in Premix Bag 1 BAG IVPB SCH (02:37)
[2017-06-30] MEDS ORDERED: Mometasone/Formoterol 120 PUFF INHALER INH SCH (06:30)
[2017-06-30] MEDS: Sodium Chloride 0.9% 1,000 ML IV SCH (07:46)
[2017-06-30 08:28] VITALS: BP 113/74; TEMP 97.7
[2017-06-30] MEDS ORDERED: TURMERIC PO SCH (09:00)
[2017-06-30] MEDS ORDERED: TURMERIC EXT PO SCH (09:00)
[2017-06-30] MEDS ORDERED: Folic Acid 1 MG TAB PO SCH ×2 (09:00)
[2017-06-30] MEDS ORDERED: PEPR EXT PO SCH (09:00)
[2017-06-30] MEDS ORDERED: Non-Formulary Item 1 EACH (Tiotropium Bromide [Spiriva Respimat] 2 INH) IH SCH (09:00)
[2017-06-30] MEDS ORDERED: Multivit, Therapeutic 1 TAB PO SCH (09:00)
[2017-06-30] MEDS ORDERED: TUMERIC FS SCH (09:00)
[2017-06-30] MEDS ORDERED: Cyanocobalamin (Vitamin B-12) 1,000 MCG TAB PO SCH ×2 (09:00)
[2017-06-30] MEDS ORDERED: Tamsulosin HCl 0.4 MG CAP PO SCH ×2 (09:00)
[2017-06-30] MEDS ORDERED: Potassium Chloride 8 MEQ TAB PO SCH (09:00)
[2017-06-30] MEDS ORDERED: [UNRECOGNIZED DRUG - OTHER] PO SCH (09:00)
[2017-06-30] MEDS ORDERED: FlunisoLIDE 0.025% Nasal Spray 25 ml Bottle EA NARE SCH (09:00)
[2017-06-30] MEDS ORDERED: Multivitamin W/ Minerals 1 TAB PO SCH (09:00)
[2017-06-30] MEDS: Cetirizine HCl 10 MG TAB PO SCH (09:24)
[2017-06-30] MEDS: clonazePAM 0.5 MG TAB PO SCH (09:25)
[2017-06-30] MEDS: Fluticasone Propionate Nasal Spray 16 gm Bottle NASAL SCH ×2 (09:26→09:29)
[2017-06-30] MEDS: Gabapentin 300 MG CAP PO SCH (09:27)
--- NOTE | 2017-06-30 12:57 | OP ---
DATE OF PROCEDURE: 06/29/2017 SURGEON: Enrique Schuster M.D. [employer]: [place] PROCEDURES: Removal of hardware C4-5, exploration of spinal fusion C4-C5, anterior cervical discecto my C5-6 and C6-7, interbody arthrodesis, intravertebral biomechanical device, local morselized autogr aft, demineralized bone matrix, and anterior titanium instrumentation C5-C7. PROCEDURE IN DETAIL: The patient was brought to the operating room and intubated. He was positioned supine with head in modest extension on a gel-filled donut. Incision was reopened and we dissected medial sternocleidomastoid muscle, identified the previous cervical plate. This was removed without difficulty and the fusion explored and seemed to be solid. We next exposed C5-C7, placed distraction across the disc spaces, and completely debrided the intravertebral disc as well as bone spurs. The bony endplates were then decorticated for the purpose of arthrodesis and appropriately sized intraver tebral biomechanical PEEK devices were brought into the field, filled with demineralized bone matrix and local morselized autograft, and tapped into place securely at C5-6 and C6-7. Next, an anterior p late was brought in the field and secured to C5, C6, and C7 using two 14 mm screws at each level. Th e wound was then extensively irrigated, immaculate hemostasis was secured. The wound was closed in a natomic layers over a drain.
== END 2017-06-30 13:54 | disposition home or self-care (01) | DRG 473 ==
LOC: SURG A 06-29 09:02 → SURG B 06-29 15:59
PROVIDERS: ADMIT Neurological Surgery; ATTEND Neurological Surgery
PROC: 0RB30ZZ Excision of Cervical Vertebral Disc, Open Approach (ICD-10-PCS; principal; 2017-06-29)
PROC: 0RG10A0 Fusion of Cervical Vertebral Joint with Interbody Fusion Device, Anterior Approach, Anterior Column, Open Approach (ICD-10-PCS; 2017-06-29)
PROC: 0RG2070 Fusion of 2 or more Cervical Vertebral Joints with Autologous Tissue Substitute, Anterior Approach, Anterior Column, Open Approach (ICD-10-PCS; 2017-06-29)
PROC: 0PP304Z Removal of Internal Fixation Device from Cervical Vertebra, Open Approach (ICD-10-PCS; 2017-06-29)
DX: M47.22 Other spondylosis with radiculopathy, cervical region (principal); J44.9 Chronic obstructive pulmonary disease, unspecified; G89.29 Other chronic pain; I10 Essential (primary) hypertension; E78.5 Hyperlipidemia, unspecified; F10.10 Alcohol abuse, uncomplicated; Z98.1 Arthrodesis status; Z88.0 Allergy status to penicillin
CPT/HCPCS: 76001; 94640; 94760; A4216; C1713; C1776; J1100; J1170; J1956; J2001; J2060; J2250; J2270; J2405; J2704; J3010; J3490; J7620

== ENCOUNTER 2017-06-23 14:26 | Outpatient (CLI) | payer MEDICARE ==
[2017-06-23 15:49] LABS: Hemoglobin 15.8 g/dL (14.0-18.0); Mean Corpuscular HGB CONC 33.5 g/dL (32.0-36.0); Mean Corpuscular Volume 98.3 fl (80.0-94.0); Mean Platelet Volume 7.9 fL (7.4-10.4); Platelet Count 163 thou/uL (130-400); Red Blood Cell (RBC) Count 4.79 mill/uL (4.70-6.10); White Blood Cell (WBC) Count 7.3 thou/uL (4.8-10.8)
[2017-06-23 16:07] LABS: Anion Gap 15 mmol/L (10-20); BUN (Urea Nitrogen) 18 mg/dL (8.4-25.7); Calc. Creatinine Clearance 0 mL/min (70-130); Calcium 9.7 mg/dL (7.8-10.44); Carbon Dioxide 25 mmol/L (23-31); Chloride 103 mmol/L (98-107); Estimated GFR-MDRD 70; Glucose 136 mg/dL (83-110); Potassium 4.3 mmol/L (3.5-5.1); Sodium 139 mmol/L (136-145)
--- NOTE | 2017-07-20 11:08 | EKG ---
Test Reason : Blood Pressure : / mmHG Vent. Rate : 080 BPM Atrial Rate : 080 BPM P-R Int : 146 ms QRS Dur : 088 ms QT Int : 366 ms P-R-T Axes : 056 004 019 degrees QTc Int : 422 ms Sinus rhythm with occasional Premature ventricular complexes Minimal voltage criteria for LVH, may be normal variant Borderline ECG When compared with ECG of 28-MAR-2017 11:34, Premature ventricular complexes are now Present Confirmed by JAXSON KENNEDY M.D. ([id number] on 07/20/2017 11:08:22 AM Referred By: HUYEN Confirmed By:JAXSON KENNEDY M.D.
== END 2017-06-23 14:27 | disposition home or self-care (01) ==
LOC: LABBT 14:26
PROVIDERS: ATTEND Neurological Surgery
DX: Z01.818 Encounter for other preprocedural examination (principal); M54.12 Radiculopathy, cervical region
CPT/HCPCS: 80048; 85027; 93005; 93010

== ENCOUNTER 2017-07-15 11:17 | Outpatient (CLI) | payer MEDICARE ==
--- NOTE | 2017-07-15 12:32 | RAD ---
CERVICAL SPINE THREE VIEWS: History: Post op follow up. Comparison: CT cervical spine, 04-21-17. FINDINGS: New surgical changes are noted since the prior study. Anterior plate and screws are now seen transfix ing C5, C6, and C7 levels. There are interbody implants at C5-6 and C6-7 noted. Fusion at C4-5 is not ed. The previous plate and screws at C4-5 have been removed. C7-T1 not adequately evaluated. Patient could not position for a swimmer's view. There is narrowing at C2-3 and C3-4 with hypertrophic degenerative changes. Minimal anterior subluxat ion at C3-4 is stable. Posterior alignment is otherwise maintained. IMPRESSION: Post op and degenerative changes of the cervical spine as noted. POS: LIZETH
== END 2017-07-15 11:18 | disposition home or self-care (01) ==
LOC: TBSIIMAG 11:17
PROVIDERS: ATTEND Neurological Surgery
DX: M54.2 Cervicalgia (principal); M47.892 Other spondylosis, cervical region; Z98.1 Arthrodesis status
CPT/HCPCS: 72040

== ENCOUNTER 2017-07-20 21:26 | Inpatient (IN) | payer MEDICARE ==
[2017-07-20 22:41] LABS: #Basophils 0.1 thou/uL (0.0-0.2); #Eosinphils 0.3 thou/uL (0.0-0.7); #Lymphocytes 2.8 thou/uL (1.20-3.40); #Monocytes 0.7 thou/uL (0.11-0.59); #Neutrophils 9.5 thou/uL (1.40-6.50); %Basophils 0.4 % (0.0-1.0); %Eosinophils 2.4 % (0.0-10.0); %Lymphocytes 20.6 % (21.0-51.0); %Monocytes 5.3 % (0.0-10.0); %Neutrophils 71.3 % (42.0-75.0); Hemoglobin 13.1 g/dL (14.0-18.0); Mean Corpuscular HGB CONC 34.1 g/dL (32.0-36.0); Mean Corpuscular Hemoglobin 33.3 pg (27.0-31.0); Mean Corpuscular Volume 97.6 fl (80.0-94.0); Platelet Count 189 thou/uL (130-400); RBC Distribution Width 12.4 % (11.5-14.5); Red Blood Cell (RBC) Count 3.93 mill/uL (4.70-6.10); White Blood Cell (WBC) Count 13.3 thou/uL (4.8-10.8)
[2017-07-20 23:02] LABS: ALT (SGPT) 22 U/L (8-55); AST (SGOT) 16 U/L (5-34); Albumin 3.4 g/dL (3.4-4.8); Alkaline Phosphatase 85 U/L (40-150); Anion Gap 11 mmol/L (10-20); BUN (Urea Nitrogen) 22 mg/dL (8.4-25.7); Bilirubin, Total 0.5 mg/dL (0.2-1.2); CK (CPK) 99 U/L (30-200); Calc. Creatinine Clearance 0 mL/min (70-130); Calcium 7.9 mg/dL (7.8-10.44); Carbon Dioxide 24 mmol/L (23-31); Chloride 107 mmol/L (98-107); Estimated GFR-MDRD Greater than 90; Globulin 2.3 g/dL (2.4-3.5); Glucose 95 mg/dL (83-110); Potassium 3.9 mmol/L (3.5-5.1); Protein, Total 5.7 g/dL (5.8-8.1); Sodium 138 mmol/L (136-145)
--- NOTE | 2017-07-20 23:04 | RAD ---
PORTABLE UPRIGHT FRONTAL CHEST RADIOGRAPH: 07/20/2017 9:30 p.m. HISTORY: Syncope. Sepsis. COMPARISON: 07/20/2017 at 7:41 p.m. FINDINGS: Stable bilateral shoulder arthroplasties. No pneumothorax, pleural fluid, focal consolidation, or al veolar edema. Incompletely imaged lumbar spine hardware present. IMPRESSION: No significant interval change. POS: [facility]IT[facility]
[2017-07-20 23:06] LABS: CKMB 2.6 ng/mL (0-6.6); Troponin I Less than 0.010 ng/mL (< 0.028)
--- NOTE | 2017-07-20 23:47 | PDOC.FPRHP ---
- History of Present Illness Chief Complaint: Transfer History of Present Illness: Patient is a 71 yo male that presents with one day history of weakness and low BP. 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 He then said he didnt feel right and so his took his BP. His BP was as low as 50/30 at home. She then called EMS. The patient recently had a neck surgery 2 weeks ago and has been having an uncomplicated recovery. He notes that he has not been sick during this time. He denies fever, chills, n/v/d. He denies chest pain, sob, or new rashes. He states that he was completely normal yesterday, but now he feels pretty weak. His notes that this has never happened before. No other complaints. ED Course: 4L NS Vancomycin Zosyn - Allergies/Adverse Reactions Allergies Allergy/AdvReac Type Severity Reaction Status Date / Time adhesive tape Allergy Verified 07/21/17 03:29 Penicillins Allergy Rash Verified 06/23/17 14:50 - Home Medications Medication Instructions Recorded Confirmed Type Albuterol Sulfate [Proair HFA] 2 puff INH Q6HR PRN 05/02/15 07/21/17 History Cyanocobalamin (Vitamin B-12) 1,000 mcg PO DAILY 05/02/15 07/21/17 History [Vitamin B-12] Flunisolide [Nasalide 0.025% Nasal 2 spray EA NARE DAILY 05/02/15 07/21/17 History [place]] [place]-3 Fatty Acids/Fish Oil [Fish 1 cap PO HS 05/02/15 07/21/17 History Oil 1,000 mg Capsule] Sennosides/Docusate Sodium 1 tablet PO HS 05/02/15 07/21/17 History [Senna-S Tablet] Budesonide-Formoterol [Symbicort 2 puff INH BID 03/27/17 07/21/17 History 160-4.5] Tiotropium Climax [Spiriva 2 inh IH QAM 03/27/17 07/21/17 History Respimat] Folic Acid [Folvite] 1 mg PO DAILY tab 03/29/17 07/21/17 Rx Gabapentin [Neurontin] 300 mg PO TID cap 03/29/17 07/21/17 Rx Multivitamin W/ Minerals 1 tab PO DAILY tab 03/29/17 07/21/17 Rx [Theragran M] traZODone HCl [Desyrel] 100 mg PO HS PRN tab 03/29/17 07/21/17 Rx Methocarbamol 1 tab PO HS 04/03/17 07/21/17 History Testosterone Cypionate 100 mg IM Q30D 04/03/17 07/21/17 History [Depo-Testosterone] Turmeric/Turmeric Ext/Pepr Ext 1 each PO DAILY 04/03/17 07/21/17 History [Turmeric Complex 500 mg Cap] clonazePAM [Klonopin] 0.25 mg PO HS 04/03/17 07/21/17 History DULoxetine [Cymbalta] 60 mg PO HS 04/29/17 07/21/17 History Pantoprazole [Protonix] 40 mg PO QAM 04/29/17 07/21/17 History Tamsulosin HCl [Flomax] 0.4 mg PO HS 04/29/17 07/21/17 History HYDROcodone Bit/APAP 10/325 [[place] 1 tab PO Q8HR PRN 06/30/17 07/21/17 History 10/325] tiZANidine HCl [Zanaflex] 4 mg PO QID PRN 06/30/17 07/21/17 History Ibuprofen 800 mg PO TID PRN 07/21/17 07/21/17 History Loratadine [Claritin] 10 mg PO DAILY 07/21/17 07/21/17 History Pramipexole Di-HCl [Pramipexole 0.5 mg PO QPM 07/21/17 07/21/17 History Dihydrochloride] Sennosides [Senna] 8.6 mg PO DAILY 07/21/17 07/21/17 History - History PMHx: GERD, HLD, COPD, PTSD, BPH, Chronic Pain PSHx: L & R knee surgery, Neck surgery, Toe surgery, Back surgery x2, Bilateral shoulder replacement, right foot surgery. Tonsillectomy FHx: Non-Contributory Social: Daily drinker up to 5 drinks per day, No smoking history or illicit drugs. Patient lives at home with his . - Review of Systems General: denies: fever/chills, weight/appetite/sleep changes Eyes: denies: eye pain, vision changes ENT: denies: nasal congestion, rhinorrhea Respiratory: denies: cough, congestion, shortness of breath Cardiovascular: denies: chest pain, palpitation Gastrointestinal: denies: nausea, vomiting, diarrhea, constipation Genitourinary: denies: incontinence, dysuria Skin: denies: rashes, lesions, jaundice Musculoskeletal: denies: pain, tenderness, stiffness Neurological: denies: numbness, syncope Psychological: denies: anxiety, depression - Vital signs BP: [79/55] HR: [66] RR: [18] Tmax: [97.8] Pox: [96]% on [RmAir] Wt: [98 kg] - Physical Exam Constitutional: NAD HEENT: normocephalic and atraumatic, PERRLA, grossly normal vision, grossly normal hearing, normal nasal mucosa Neck: supple, FROM Chest: no-tender to palpation Heart: RRR, normal S1/S2, no murmurs/rubs/gallops, pulses present, no edema Lungs: CTAB, no wheezing -Lungs: rales at bilateral bases Abdomen: soft, non-tender, bowel sounds present, no masses/distention Musculoskeletal: normal structure, normal tone, ROM grossly normal Neurological: no focal deficit, CN II-XII intact, normal sensation Skin: no rash/lesions, good turgor, capillary refill <2 seconds Heme/Lymphatic: no unusual bruising or bleeding Psychiatric: normal mood and affect, good judgment and insight, intact recent and remote memory FMR H&P: Results - Labs Result Diagrams: 07/21/17 04:35 07/21/17 04:35 Lab results: WBC 13.3 thou/uL (4.8-10.8) H 07/20/17 22:33 Hgb 13.1 g/dL (14.0-18.0) L 07/20/17 22:33 Hct 38.4 % (42.0-52.0) L 07/20/17 22:33 MCV 97.6 fl (80.0-94.0) H 07/20/17 22:33 Plt Count 189 thou/uL (130-400) 07/20/17 22:33 Neutrophils % 71.3 % (42.0-75.0) 07/20/17 22:33 Sodium 138 mmol/L (136-145) 07/20/17 22:33 Potassium 3.9 mmol/L (3.5-5.1) 07/20/17 22:33 Chloride 107 mmol/L (98-107) 07/20/17 22:33 Carbon Dioxide 24 mmol/L (23-31) 07/20/17 22:33 BUN 22 mg/dL (8.4-25.7) 07/20/17 22:33 Creatinine 0.83 mg/dL (0.6-1.3) 07/20/17 22:33 Glucose 95 mg/dL (83-110) 07/20/17 22:33 Calcium 7.9 mg/dL (7.8-10.44) 07/20/17 22:33 Total Bilirubin 0.5 mg/dL (0.2-1.2) 07/20/17 22:33 AST 16 U/L (5-34) 07/20/17 22:33 ALT 22 U/L (8-55) 07/20/17 22:33 Alkaline Phosphatase 85 U/L (40-150) 07/20/17 22:33 Creatine Kinase 99 U/L (30-200) 07/20/17 22:33 CK-MB (CK-2) 2.6 ng/mL (0-6.6) 07/20/17 22:33 B-Natriuretic Peptide 37.8 pg/mL (0-100) 07/20/17 22:33 Serum Total Protein 5.7 g/dL (5.8-8.1) L 07/20/17 22:33 Albumin 3.4 g/dL (3.4-4.8) 07/20/17 22:33 - EKG Interpretation EKG: Sinus Bradycardia FMR H&P: A/P - Problem List (1) Septic shock Current Visit: Yes Status: Acute Code(s): A41.9 - SEPSIS, UNSPECIFIED ORGANISM; R65.21 - SEVERE SEPSIS WITH SEPTIC SHOCK (2) BPH (benign prostatic hyperplasia) Current Visit: Yes Status: Acute Code(s): N40.0 - BENIGN PROSTATIC HYPERPLASIA WITHOUT LOWER URINRY TRACT SYMP (3) S/P cervical spinal fusion Current Visit: No Status: Acute Comment: Will clsoley Monitor post Op complication, With pain management by Dr. Schuster. (4) Chronic pain Current Visit: No Status: Chronic Code(s): G89.29 - OTHER CHRONIC PAIN (5) Hyperlipidemia Current Visit: No Status: Chronic Code(s): E78.5 - HYPERLIPIDEMIA, UNSPECIFIED Comment: Tata on Home MEds. - Plan 1) Septic shock: - Admit to IMCU - No clear source - Continue Vanc and Zosyn - Continue aggressive IVF - Patient refuses Central Line - Strict I&Os 2) Suspected RLL infiltrate vs. atelectasis - Could be source for #1 - Will continue antibiotics - Will consider repeat imaging 3) COPD - Not in exacerbation - Continue home inhalers - PRN nebs if needed 4) HLD - Continue home meds 5) BPH - Continue home meds - May need catheter at some point 6) s/p cervical fusion - Surgery 2 weeks ago - Continue home meds for pain management CODE STATUS: FULL CODE Disposition: Stable, Will admit to IMCU. FMR H&P: Upper Level - Pertinent history 71 yo CM pmhx COPD p/w weakness and low BP x 1 day. 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 He returned home and called his , telling her to get his pain medication ready that he was "in a lot of pain" in his neck and shoulders. His states that she found him sitting in the chair at home around 4pm, "completely out of it." She checked his blood pressure, which was initially 70/40's and decreased to 50/30's by the time EMS arrived. Patient was subsequently transported to [place] [facility] and given 3L of IV fluids and empiric antibiotics with some improvement in his pressures but remaining overall hypotensive. Patient refused central line placement at that time. He had a CT head that was negative. CTA also done there (due to his new hypoxia and recent surgery ~2 wks ago) was negative for PE but did report possible RLL infiltrate. Patient was subsequently transferred to for further management. Patient does note that he felt dyspneic earlier but denies any measured fevers. Endorses some chills. He has had an occasional cough since his recent neck surgery but denies any worsening today. Also mentions experiencing "a funny feeling in his heart" earlier this afternoon that he is unable to further describe. - Pertinent findings PE Gen: AAOx3, NAD, obese, appears stated age HEENT: PERRLA, mucous membranes slightly dry CV: irregular rhythm, normal rate, no m/g/r Lungs: soft bibasilar rales Abd: suprapubic fullness, non-tender, +BS Ext: no c/c/e, warm and well-perfused Pulses: 2+ b/l DPs - Plan Date/Time: 07/20/17 [id number] I, Benny Redmond, have evaluated this patient and agree with findings/plan as outlined by corporate intern resident. Pertinent changes/additions are listed here. 71 yo CM with: 1) Septic shock: admitting to IMCU for closer monitoring O/N. BPs remaining mildly hypotensive despite adequate (>30ml/kg) fluid resuscitation. Will continue IVF and broad spectrum IV antibiotics. If worsening, consider 2nd anti- pseudomonal agent as patient likely had recent abx with his neck surgery. Lactic acid WNL, CRP mildly elevated at 0.67. Slight leukocytosis to 13. No evidence of end organ dysfunction. Patient continues to refuse central venous access; could consider running pressors through peripheral line if absolutely necessary v. seeing if patient will consent to midline. Q1h vital signs. Strict UOP monitoring. Patient does not have varner in at this time. Mental status is improved after initial resuscitation. 2) RLL infiltrate v. atelectasis v. mass: continue antibiotics, encourage IS; will need f/u chest CT in 4-6 wks to exclude possibility of mass 3) Acute hypoxic respiratory failure: possible 2/2 #2, CTA negative for PE, ABG not done, wean O2 as tolerated 4) COPD: no evidence of current exacerbation at this point; patient not oxygen or steroid dependent at baseline. Continue home inhalers with prn neb treatments for now. 5) Other chronic medical/psychiatric conditions: home medication list reviewed, will continue while inpt DVT ppx: Lovenox Attending Addendum - Attending Addendum Date/Time: 07/21/17 0636 I personally evaluated the patient and discussed the management with Dr. Redmond and Bo at the time of admission. I agree with the History, Examination, Assessment and Plan documented above with any addition or exceptions noted below. If this is not just severe dehydration, then sepsis related to early pneumonia or bacteremia is likely. Cultures pending. Antibiotics initiated.
[2017-07-21] MEDS ORDERED: Ondansetron ODT 4 MG TAB SL PRN (01:54)
[2017-07-21] MEDS ORDERED: Acetaminophen 325 MG TAB PO PRN ×2 (01:54→02:03)
[2017-07-21] MEDS ORDERED: Ondansetron HCl/PF 4 MG/2 ML Vial IVP PRN ×2 (01:54→02:03)
[2017-07-21] MEDS ORDERED: Sodium Chloride 0.9% 1,000 ML IV SCH (02:00)
[2017-07-21] MEDS: Sodium Chloride 0.9% 1,000 ML IV SCH ×5 (02:15→20:58)
[2017-07-21 02:21] VITALS: BMI 36.8
[2017-07-21 03:01] LABS: Bilirubin Negative (Negative); Blood, Urine Negative (Negative); Clarity CLEAR (Clear); Glucose, Urine (Dipstick) Negative (Negative); Leukocyte Negative (Negative); Nitrite Negative (Negative); Protein, Urine (Dipstick) Negative (Neg-Trace); Urobilinogen 0.2 mg/dL (0.2-1.0); pH, Urine 6.5 (5.0-9.0)
[2017-07-21] MEDS: Piperacillin/Tazobactam 4.5 GM in Sodium Chloride 0.9% 100 ML IVPB SCH ×4 (03:13→21:52)
[2017-07-21] MEDS ORDERED: Vancomycin HCl 1.5 GM in Sodium Chloride 0.9% 250 ML 250 ML IVPB SCH (04:00)
[2017-07-21] MEDS ORDERED: Vancomycin HCl 1 GM in Premix Bag 1 BAG IVPB SCH (04:00)
[2017-07-21] MEDS: Vancomycin HCl 1.5 GM in Sodium Chloride 0.9% 250 ML 300 ML IVPB SCH ×2 (04:06→16:06)
[2017-07-21 04:52] LABS: #Basophils 0.1 thou/uL (0.0-0.2); #Eosinphils 0.4 thou/uL (0.0-0.7); #Lymphocytes 2.4 thou/uL (1.20-3.40); #Monocytes 0.6 thou/uL (0.11-0.59); #Neutrophils 6.6 thou/uL (1.40-6.50); %Basophils 0.6 % (0.0-1.0); %Eosinophils 4.3 % (0.0-10.0); %Lymphocytes 23.7 % (21.0-51.0); %Monocytes 6.2 % (0.0-10.0); %Neutrophils 65.2 % (42.0-75.0); Hemoglobin 12.7 g/dL (14.0-18.0); Mean Corpuscular HGB CONC 33.8 g/dL (32.0-36.0); Mean Corpuscular Hemoglobin 33.3 pg (27.0-31.0); Mean Corpuscular Volume 98.3 fl (80.0-94.0); Mean Platelet Volume 6.9 fL (7.4-10.4); Platelet Count 171 thou/uL (130-400); RBC Distribution Width 12.5 % (11.5-14.5); Red Blood Cell (RBC) Count 3.82 mill/uL (4.70-6.10); White Blood Cell (WBC) Count 10.1 thou/uL (4.8-10.8)
[2017-07-21] MEDS ORDERED: HYDROcodone/Acetaminophen 10/325 mg Tablet PO PRN (04:53)
[2017-07-21] MEDS ORDERED: traZODone HCl 50 MG TAB PO PRN (04:53)
[2017-07-21] MEDS ORDERED: tiZANidine HCl 4 MG TAB PO PRN (04:53)
[2017-07-21] MEDS ORDERED: PROVENTIL INHALER 6.7 G (200 INHALATIONS) INH PRN (04:53)
[2017-07-21] MEDS ORDERED: Ibuprofen 800 MG TAB PO PRN (04:53)
[2017-07-21] MEDS ORDERED: TESTOSTERONE CYPIONATE 100 MG IM SCH (05:00)
[2017-07-21 05:17] LABS: Anion Gap 8 mmol/L (10-20); BUN (Urea Nitrogen) 19 mg/dL (8.4-25.7); Calc. Creatinine Clearance 136 mL/min (70-130); Calcium 7.5 mg/dL (7.8-10.44); Carbon Dioxide 25 mmol/L (23-31); Chloride 111 mmol/L (98-107); Estimated GFR-MDRD Greater than 90; Glucose 88 mg/dL (83-110); Potassium 3.8 mmol/L (3.5-5.1); Sodium 140 mmol/L (136-145)
[2017-07-21] MEDS ORDERED: Ipratropium Bromide 2.5 ml Neb NEB SCH (07:00)
[2017-07-21] MEDS: Mometasone/Formoterol 120 PUFF INHALER INH SCH ×2 (07:33→19:46)
[2017-07-21] MEDS ORDERED: TURMERIC COMPLEX 500 MG PO SCH (09:00)
[2017-07-21] MEDS: Gabapentin 300 MG CAP PO SCH ×3 (09:15→21:57)
[2017-07-21] MEDS: FlunisoLIDE 0.025% Nasal Spray 25 ml Bottle EA NARE SCH (09:16)
[2017-07-21] MEDS: Loratadine 10 MG TAB PO SCH (09:16)
[2017-07-21] MEDS: Folic Acid 1 MG TAB PO SCH (09:16)
[2017-07-21] MEDS: Cyanocobalamin (Vitamin B-12) 1,000 MCG TAB PO SCH (09:16)
[2017-07-21] MEDS: Senokot 8.6 MG TAB PO SCH (09:16)
[2017-07-21] MEDS: Enoxaparin Sodium 40 MG/0.4 ML SYRINGE SC SCH (09:16)
[2017-07-21] MEDS: Multivitamin W/ Minerals 1 TAB PO SCH (09:16)
[2017-07-21] MEDS ORDERED: HYDROcodone/Acetaminophen 10/325 mg Tablet PO SCH (11:30)
[2017-07-21] MEDS: Ipratropium Bromide 2.5 ml Neb NEB SCH ×2 (12:52→19:36)
[2017-07-21] MEDS: oxyCODONE/Acetaminophen 5 mg/325 mg Tablet PO SCH ×2 (13:11→17:05)
--- NOTE | 2017-07-21 14:01 | RAD ---
PORTABLE CHEST ONE VIEW: Date: 07-21-17 Time: 1:01 p.m. History: Concern for pneumonia. FINDINGS: Comparison made with exam from previous day. The heart size is normal. The aorta is tortuous. The lungs are expanded without focal areas of consol idation, pneumothorax, or pleural effusions. Bilateral shoulder arthroplasty change and metallic hard montgomery in the lower cervical spine again seen. IMPRESSION: No radiographic evidence of acute cardiopulmonary process. POS: RITESH
[2017-07-21] MEDS ORDERED: clonazePAM 0.5 MG TAB PO SCH ×2 (14:15→21:00)
[2017-07-21] MEDS ORDERED: Pramipexole Di-HCl 1 MG TAB PO SCH (21:00)
[2017-07-21] MEDS ORDERED: Methocarbamol 500 MG TAB PO SCH (21:00)
[2017-07-21] MEDS ORDERED: Senokot S 8.6-50 MG TAB PO SCH (21:00)
[2017-07-21] MEDS ORDERED: Tamsulosin HCl 0.4 MG CAP PO SCH (21:00)
[2017-07-21] MEDS ORDERED: Fish Oil 1,000 MG CAP PO SCH (21:00)
[2017-07-21] MEDS ORDERED: DULoxetine 60 MG CAP PO SCH (21:00)
--- NOTE | 2017-07-22 00:16 | CON ---
DATE OF CONSULTATION: 07/21/2017 HISTORY OF PRESENT ILLNESS: Mr. 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 He said there is a very little air flow in the barn. He was in there for 5 hours and really says he would not drink much water. He says he was sweating so much and his gloves were soaked the entire time he got in there. He actually walked outside to cool off in a breeze for a little while, but had to go back in and get the job done. He said when he left, he went to a convenience store to get some water and said he felt like he was going to pass out while he was driving home. When he got home, he asked his to take his blood pressure and this was approximately 50s systolic. She called the EMS. He is recovering from cervical spine surgery, says he had not been having any problems except for sore throat. He had no fever leading up to this. PAST MEDICAL HISTORY: Remarkable for bilateral knee surgery, recent cervical spine surgery, two back surgeries, bilateral shoulder replacements, tonsillectomy, and surgery on his right foot. SOCIAL HISTORY: He drinks in the evening. He is a nonsmoker. FAMILY HISTORY: Negative for lung disease in early age. REVIEW OF SYSTEMS: Otherwise negative. He specifically denies headache, fever , nausea, vomiting, diarrhea, abdominal cramping, abdominal pain, hemoptysis, purulent sputum, cough, or chest congestion. He says he has had pneumonia in the past and knows with pneumonia feels like. He does not feel like he has pneumonia. The remainder of his 10-point review of systems is negative. PHYSICAL EXAMINATION: VITAL SIGNS: This morning, he is afebrile, heart rate 71, respiratory rate 16, oximetry is 96 on room air, blood pressure 149/78. HEENT: Pupils are equal. Sclerae is anicteric. NECK: Supple, no lymphadenopathy. LUNGS: Clear. HEART: Regular rhythm, no S3. ABDOMEN: Soft and nontender, no masses. EXTREMITIES: No clubbing, cyanosis, or edema. NEUROLOGIC: Nonfocal. LABORATORY DATA: White count 10.1, hemoglobin 12.7, and platelets 171. Electrolytes were normal. He said he had the chills while he was working in the heat. He says he has had heat exhaustion in the past and says this felt like that, but he was worse the last time he had it. IMPRESSION: Heat exhaustion. I doubt he is septic. I would wait until negative cultures, but if his cultures are negative 48 hours, he could probably be discharged home in the morning. I do not find any preliminary culture results in the computer system. Hopefully, cultures were done in the emergency department. I enjoyed my visit with him; this is a 50-minute consult greater than 50% of the time was spent on unit coordinating care. LUIS ANGEL
[2017-07-22] MEDS: Ipratropium Bromide 2.5 ml Neb NEB SCH ×3 (00:20→11:35)
[2017-07-22] MEDS: oxyCODONE/Acetaminophen 5 mg/325 mg Tablet PO SCH ×3 (00:26→11:27)
[2017-07-22] MEDS: Sodium Chloride 0.9% 1,000 ML IV SCH ×2 (00:27→05:36)
[2017-07-22] MEDS: Piperacillin/Tazobactam 4.5 GM in Sodium Chloride 0.9% 100 ML IVPB SCH ×2 (03:26→08:59)
[2017-07-22] MEDS: Vancomycin HCl 1.5 GM in Sodium Chloride 0.9% 250 ML 300 ML IVPB SCH (03:31)
[2017-07-22] MEDS ORDERED: Ondansetron ODT 4 MG TAB PO PRN (05:44)
[2017-07-22] MEDS: Mometasone/Formoterol 120 PUFF INHALER INH SCH (06:25)
[2017-07-22 07:10] LABS: Troponin I Less than 0.010 ng/mL (< 0.028)
--- NOTE | 2017-07-22 08:47 | PDOC.FM ---
- Subjective Subjective: Complaining of neck pain this morning. He is frustrated because he feels like doctors do not understand his pain. He did receive his pain medication as he takes it at home. - Objective MAR Reviewed: Yes Vital Signs & Weight: Vital Signs (12 hours) Temp Pulse Resp BP BP Pulse Ox 07/22/17 07:29 98.2 F 95 20 153/91 H 94 L 07/22/17 06:24 73 14 93 L 07/22/17 00:00 98.4 F 72 20 148/90 H 93 L Weight Weight 103.6 kg I&O: 07/21/17 07/22/17 07/23/17 06:59 06:59 06:59 Intake Total 1800 Output Total 1125 1380 Balance 675 -1380 Result Diagrams: 07/21/17 04:35 07/21/17 04:35 <Elodia Espinal - Last Filed: 07/22/17 08:44> - Objective Vital Signs & Weight: Vital Signs (12 hours) Temp Pulse Resp BP Pulse Ox 07/22/17 12:47 97.6 F 88 137/92 H 94 L 07/22/17 08:00 98.2 F 95 20 94 L 07/22/17 07:29 98.2 F 95 20 153/91 H 94 L 07/22/17 06:24 73 14 93 L Weight Weight 103.6 kg I&O: 07/21/17 07/22/17 07/23/17 06:59 06:59 06:59 Intake Total 1800 Output Total 1125 1380 Balance 675 -1380 Result Diagrams: 07/21/17 04:35 07/21/17 04:35 <Regina Rucker - Last Filed: 07/22/17 13:00> Phys Exam - Physical Examination Constitutional: NAD HEENT: PERRLA, moist MMs Respiratory: no rales, wheezing present mild crackles bilaterally Cardiovascular: RRR, no significant murmur Gastrointestinal: soft, non-tender, no distention Musculoskeletal: no edema, pulses present Neurological: non-focal, normal sensation Psychiatric: normal affect, A&O x 3 Skin: no rash, normal turgor <Elodia Espinal - Last Filed: 07/22/17 08:44> Dx/Plan (1) Hypovolemic shock Code(s): R57.1 - HYPOVOLEMIC SHOCK Status: Acute (2) Heat exhaustion Code(s): T67.5XXA - HEAT EXHAUSTION, UNSPECIFIED, INITIAL ENCOUNTER Status: Acute (3) COPD (chronic obstructive pulmonary disease) Status: Chronic (4) Chronic pain Code(s): G89.29 - OTHER CHRONIC PAIN Status: Chronic (5) Hyperlipidemia Code(s): E78.5 - HYPERLIPIDEMIA, UNSPECIFIED Status: Chronic - Plan Plan: 1) S Hypovolemic shock: -Heat exhaustion causing volume depletion -Septic shock less likely as pt has been afebrile, normal vitals, s/p 2 cxr that are wnl. -He does have some wheezing and crackles bilaterally on exam, but he does have a hx of COPD. Plan to dc abx today. -Blood pressures wnl this am. Decreased IVF yesterday to maintenance. Will dc fluids today as well as abx. Plan for discharge this afternoon. -Slight leukocytosis to 13, normal. No evidence of end organ dysfunction. Adequate UOP. 2) COPD: no evidence of current exacerbation at this point; patient not oxygen or steroid dependent at baseline. Pt wheezing mildly on exam. Will order duonebs q4h scheduled. 3) Other chronic medical/psychiatric conditions: continue home meds Dispo: okay to discharge today. Recommend follow-up in 2 weeks with pcp. <Elodia Espinal - Last Filed: 07/22/17 08:44> Attending Addendum - Attending Addendum Date/Time: 07/22/17 1300 I personally evaluated the patient and discussed the management with Dr. Espinal. I agree with the History, Examination, Assessment and Plan documented above with any addition or exceptions noted below. The patient's bp has been stable. CXR showed no consolidation. He will discharge home. No indication for antibiotics. Pt will resume home pain meds. <Regina Rucker - Last Filed: 07/22/17 13:00>
[2017-07-22] MEDS: Multivitamin W/ Minerals 1 TAB PO SCH (08:57)
[2017-07-22] MEDS: Loratadine 10 MG TAB PO SCH (08:57)
[2017-07-22] MEDS: Enoxaparin Sodium 40 MG/0.4 ML SYRINGE SC SCH (08:57)
[2017-07-22] MEDS: Gabapentin 300 MG CAP PO SCH (08:58)
[2017-07-22] MEDS: Cyanocobalamin (Vitamin B-12) 1,000 MCG TAB PO SCH (08:58)
[2017-07-22] MEDS: Folic Acid 1 MG TAB PO SCH (08:58)
[2017-07-22] MEDS: FlunisoLIDE 0.025% Nasal Spray 25 ml Bottle EA NARE SCH (08:58)
[2017-07-22] MEDS: Senokot 8.6 MG TAB PO SCH (09:00)
[2017-07-22 12:48] VITALS: BP 137/92; TEMP 97.6
--- NOTE | 2017-07-22 17:36 | PRG ---
DATE OF SERVICE: 07/22/2017 SUBJECTIVE: The patient has no complaints, says he feels great. He is ready to go home. PHYSICAL EXAMINATION: VITAL SIGNS: Have been stable. LUNGS: Clear. HEART: Regular rhythm. ABDOMEN: Soft. IMPRESSION: 1. Heat exhaustion. We discussed preventative measures and also discussed these with his . 2. History of possible chronic obstructive pulmonary disease. PLAN: I will be happy to see him as an outpatient. He was given my phone number. I think he is sta ble for discharge.
== END 2017-07-22 13:12 | disposition home or self-care (01) | DRG 922 ==
LOC: ERS 21:26 → IMCU/EMU 23:55 → T4-A 07-21 18:23
PROVIDERS: ADMIT Family Medicine; ATTEND Family Medicine
DX: T67.3XXA Heat exhaustion, anhydrotic, initial encounter (principal); R57.1 Hypovolemic shock; J96.01 Acute respiratory failure with hypoxia; J44.9 Chronic obstructive pulmonary disease, unspecified; M54.2 Cervicalgia; X30.XXXA Exposure to excessive natural heat, initial encounter; G89.29 Other chronic pain; E78.5 Hyperlipidemia, unspecified; N40.0 Benign prostatic hyperplasia without lower urinary tract symptoms; Z98.1 Arthrodesis status; K21.9 Gastro-esophageal reflux disease without esophagitis
CPT/HCPCS: 36415; 71045; 80048; 81003; 83880; 84484; 85025; 93005; 94640; 96360; J1650; J2543; J3370; J7050; J7644; Q0162

== ENCOUNTER 2017-08-25 15:56 | Outpatient (CLI) | payer MEDICARE ==
--- NOTE | 2017-08-25 16:36 | RAD ---
CERVICAL SPINE FOUR VIEWS: 08/25/2017 COMPARISON: 07/15/2017 HISTORY: Cervical disk degeneration. Prior neck surgery. FINDINGS: Lateral examination demonstrates disk space narrowing and degenerative endplate change at C2-C3 and a t C3-C4. There is an intervertebral disk device at C4-C5, C5-C6, and C6-C7. Anterior diskectomy and fusion hardware is seen spanning the C5-C6 and C6-C7 levels. No prevertebral soft tissue abnormalit y is seen. No evidence for hardware failure is noted. Open-mouth odontoid view demonstrates a normal appearing dens and C1-C2 articulation. There is atherosclerotic calcification overlying the neck bilaterally. Multilevel facet and uncovert ebral osteophyte formation is noted bilaterally, unchanged. IMPRESSION: Stable postoperative and degenerative changes of the cervical spine. POS: LIZETH
== END 2017-08-25 15:57 | disposition home or self-care (01) ==
LOC: TBSIIMAG 15:56
PROVIDERS: ATTEND Neurological Surgery
DX: M50.30 Other cervical disc degeneration, unspecified cervical region (principal); Z98.1 Arthrodesis status
CPT/HCPCS: 72040

== ENCOUNTER 2017-10-08 10:47 | Outpatient (CLI) | payer MEDICARE ==
--- NOTE | 2017-10-08 13:25 | RAD ---
SINGLE CONTRAST ESOPHAGRAM: INDICATION: History of EGD with Candidiasis found within the distal esophagus by biopsy. History of esophageal r eflux and difficulty swallowing. TECHNIQUE: Thick barium and thin barium were utilized for a single-contrast esophagram. A double-contrast esoph agram was not performed due to history of recent EGD and biopsy. Total fluoroscopic time is 1.9 maame argenis. Total exposure is 355.09 mGy. FINDINGS: There are numerous tertiary contractions in the mid to distal esophagus. There was severe reflux see n up to the cervicothoracic junction. There is a mild cricopharyngeal bar seen at the C5 vertebral l evel. No intraluminal mass or stricture was identified. The 12.5 mg tablet passed without difficult y. IMPRESSION: 1. Severe gastroesophageal reflux. 2. Prominent tertiary contractions of the mid to distal esophagus may be related to esophagitis or p resbyesophagus. 3. Mild cricopharyngeal bar. POS: [facility]
== END 2017-10-08 10:48 | disposition home or self-care (01) ==
LOC: RAD 10:47
PROVIDERS: ATTEND Internal Medicine
DX: B37.81 Candidal esophagitis (principal); K21.9 Gastro-esophageal reflux disease without esophagitis; R13.10 Dysphagia, unspecified; R11.10 Vomiting, unspecified; J39.2 Other diseases of pharynx
CPT/HCPCS: 74220

== ENCOUNTER 2017-12-04 14:11 | Outpatient (CLI) | payer MEDICARE | END 2017-12-04 14:12 | disposition home or self-care (01) | LOC: BICMAMMO 14:11 | PROVIDERS: ATTEND Family Medicine | DX: N63.20 Unspecified lump in the left breast, unspecified quadrant (principal) | CPT/HCPCS: 76642; 77066; G0279 ==

== ENCOUNTER 2017-12-08 13:50 | Outpatient (CLI) | payer MEDICARE ==
--- NOTE | 2017-12-08 15:55 | RAD ---
CERVICAL SPINE SERIES THREE VIEWS: HISTORY: Postop followup. COMPARISON: 08/25/2017 FINDINGS: The patient has undergone anterior cervical fusion. Placement of plate and screws extend from C5 to C7. Markers of disk implants are within the confines of the disk levels. Exam overall appears stabl e. IMPRESSION: Stable postoperative change. POS: [facility]
== END 2017-12-08 13:51 | disposition home or self-care (01) ==
LOC: TBSIIMAG 13:50
PROVIDERS: ATTEND Neurological Surgery
DX: M54.12 Radiculopathy, cervical region (principal); Z98.1 Arthrodesis status
CPT/HCPCS: 72040

== ENCOUNTER 2017-12-25 12:12 | Outpatient (CLI) | payer MEDICARE ==
--- NOTE | 2017-12-25 15:57 | MRI ---
MRI BRAIN WITH AND WITHOUT CONTRAST: DATE: 12/25/2017. HISTORY: A 72-year-old male with R51, headache. TECHNIQUE: Multiple sequences obtained in axial, sagittal, and coronal planes; pre and post IV injection of gado linium-based contrast agent: 20 mL of MultiHance. FINDINGS: The ventricles are normal in size and configuration. There is no major intraaxial signal abnormality , restricted diffusion, abnormal intraaxial enhancement, mass, midline shift or any other mass effect , recent intraaxial hemorrhage, or extraaxial fluid collection. IMPRESSION: Normal. jn[] POS: [facility]
== END 2017-12-25 12:13 | disposition home or self-care (01) ==
LOC: SCSMRI 12:12
PROVIDERS: ATTEND Neurological Surgery
DX: R51 Headache (principal)
CPT/HCPCS: 70553; 82565

== ENCOUNTER 2018-05-18 12:48 | Outpatient (CLI) | payer MEDICARE ==
--- NOTE | 2018-05-18 14:11 | RAD ---
CERVICAL SPINE SERIES THREE VIEWS: HISTORY: Cervical radiculopathy, postop. COMPARISON: 12/08/2017 FINDINGS: Postoperative changes with anterior cervical fusion, with plate and screws extending from C5 to C7 is noted. Bony fusion across the C4-C5 level is noted. Marked disk narrowing is seen at C2-C3. Overa ll appearance is stable, as compared to the prior exam. IMPRESSION: Stable postoperative change. POS: [facility]
--- NOTE | 2018-05-18 14:50 | MRI ---
MRI OF CERVICAL SPINE PERFORMED WITHOUT CONTRAST ENHANCEMENT: Date: 05/18/18 HISTORY: Neck pain, left arm pain. FINDINGS: The vertebral bodies are normal in height. The patient has undergone anterior cervical fusion with pl acement of plate and screws which extend from C5 to C7. There is also bony fusion across the C4-5 lev el. There is also moderate disc narrowing at C2-3. Cord signal change is normal. C2-3: Slightly asymmetric left-sided uncovertebral changes, as well as facet changed contribute to s ome mild to moderate left-sided foraminal narrowing at this level. C3-4: Uncovertebral changes at this level show some mild left-sided foraminal narrowing. No central canal stenosis. C4-5: There is moderate narrowing to the left foramen at this level with uncovertebral changes, as w ell as facet changes. C5-6: No central canal stenosis. Mild bilateral foraminal narrowing. C6-7: Borderline bilateral foraminal narrowing at this level with some mild uncovertebral changes. C7-T1: There is some asymmetric left-sided disc osteophytic change associated with moderate left-cornelius ed foraminal narrowing. IMPRESSION: Multilevel foraminal stenosis, predominantly all left-sided changes, as discussed above. POS: [facility]
== END 2018-05-18 12:49 | disposition home or self-care (01) ==
LOC: TBSIIMAG 12:48
PROVIDERS: ATTEND Neurological Surgery
DX: M54.12 Radiculopathy, cervical region (principal); M48.02 Spinal stenosis, cervical region; Z98.890 Other specified postprocedural states
CPT/HCPCS: 72040; 72141

== ENCOUNTER 2018-07-08 15:28 | Outpatient (CLI) | payer MEDICARE ==
--- NOTE | 2018-07-08 16:59 | MRI ---
MRI Upper Ext Jt Lt WO Con HISTORY:Left shoulder replacement. Joint pain. COMPARISON: None. FINDINGS: The patient has undergone a reverse total shoulder replacement. There is considerable artif act despite attempt at some metal suppression techniques. There is mild atrophy of the rotator cuff musculature. I do not appreciate any type of bony dehiscence of the deltoid muscle groups. There is n o abnormal soft tissue signal changes to suggest any type of inflammatory or infectious process. There are no other significant findings. IMPRESSION: Postoperative changes of left shoulder no definite acute changes appreciated
== END 2018-07-08 15:29 | disposition home or self-care (01) ==
LOC: SCSMRI 15:28
PROVIDERS: ATTEND Family Medicine
DX: M25.512 Pain in left shoulder (principal); Z98.890 Other specified postprocedural states

== ENCOUNTER 2018-12-02 10:46 | Outpatient (CLI) | payer MEDICARE | END 2018-12-02 10:47 | disposition home or self-care (01) | PROVIDERS: ATTEND Family Medicine | DX: R13.10 Dysphagia, unspecified (principal) | CPT/HCPCS: 74230 ==

== ENCOUNTER 2019-07-20 12:26 | Outpatient (CLI) | payer MEDICARE ==
--- NOTE | 2019-07-20 14:19 | MRI ---
MRI LEFT HIP WITHOUT CONTRAST: 07/20/19 HISTORY: Pain. COMPARISON: Left hip radiograph March 2019. Hip MRI 2015. FINDINGS: BONES: There is posterior spinal fusion hardware at lumbosacral spine. 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 No edema. No stress edema. No stress fracture. Normal signal of the femoral head and neck. Obturator rings are intact. MUSCLES: There is asymmetric mild atrophy of the left gluteus medius muscle from old injury. Bone graft defec t left ileum. Remainder of the muscle signal and bulk appears normal. The quadratus muscle signal is normal. TENDONS: The rectus femoris tendons are intact. The iliopsoas tendon is intact. The hamstring tendons are inta ct. Adductor tendons are intact. Labral evaluation is limited due to susceptibility. The patient is known to have a chronic left labr al tear on prior imaging. There does appear to be an anterior superior left labral tear. INTRAPELVIC SOFT TISSUES: Unremarkable. CARTILAGE: No full thickness cartilage defect is appreciated. 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 IMPRESSION: 1. Mild asymmetric atrophy left gluteus medius muscle from prior injury. 2. Chronic anterior superior labral tear. 3. No stress fracture or stress edema. 4. Only mild chondromalacia. No full thickness chondral defects. POS: HOME
== END 2019-07-20 12:27 | disposition home or self-care (01) ==
LOC: BICMRI 12:26
PROVIDERS: ATTEND Anesthesiology Pain Medicine
DX: M70.62 Trochanteric bursitis, left hip (principal); M62.838 Other muscle spasm; M25.511 Pain in right shoulder; M25.552 Pain in left hip; Z96.611 Presence of right artificial shoulder joint; Z68.32 Body mass index [BMI] 32.0-32.9, adult; Z79.891 Long term (current) use of opiate analgesic; S43.431A Superior glenoid labrum lesion of right shoulder, initial encounter; M62.551 Muscle wasting and atrophy, not elsewhere classified, right thigh; M94.251 Chondromalacia, right hip

== ENCOUNTER 2021-08-14 07:38 | Day surgery (SDC) | payer MEDICARE ==
[2021-08-13 08:43] VITALS: BMI 29.3
== END 2021-08-14 08:33 | disposition home or self-care (01) ==
LOC: RAD 07:38 → EDSTATUS 08:00 → RAD 08:33
PROVIDERS: ATTEND Neurological Surgery
DX: M48.062 Spinal stenosis, lumbar region with neurogenic claudication (principal); M48.04 Spinal stenosis, thoracic region; Z53.9 Procedure and treatment not carried out, unspecified reason; Z79.899 Other long term (current) drug therapy; Z88.0 Allergy status to penicillin; Z91.048 Other nonmedicinal substance allergy status